=== PATIENT | female | born 1960 | race Caucasian/White ===

== ENCOUNTER 2017-02-03 10:20 | Day surgery (SDC) | payer BC, OTHER ==
[2017-02-02 09:16] VITALS: BMI 22.8
[~2017-02-03 10:20] MED LIST: LACTATED RINGERS 1,000 ML IV SCH
[2017-02-03 10:49] VITALS: RESP 16; TEMP 98.1
[2017-02-03] MEDS ORDERED: LIDOCAINE 1% 20 ML VIAL (10MG/ML) FOR IV START INTRADERMA ONE (10:59)
[2017-02-03] MEDS ORDERED: LIDOCAINE 1% INJ 10MG/ML (20 ML MDV) ONE (11:31)
[2017-02-03] MEDS ORDERED: PROPOFOL 10 MG/ML 20 ML VIAL IV ONE (11:31)
[2017-02-03] MEDS ORDERED: MIDAZOLAM 2 MG/2 ML VIAL ONE (11:31)
--- NOTE | 2017-02-03 11:52 | P.PCN ---
Date of Procedure: 02/03/17 Procedure(s) Performed: BRIEF HISTORY: Patient is a 56-year-old pleasant white female, scheduled for an elective colonoscopy as a part of screening for change in bowel habits and abdominal pain for the last 1 year duration. She has some right upper quadrant abdominal pain, abdominal bloating and change in stool caliber. Denies any rectal bleeding. PROCEDURE PERFORMED: Colonoscopy. PREOPERATIVE DIAGNOSIS: Abdominal pain and change in bowel habits. IV sedation per Anesthesia. PROCEDURE: After informed consent was obtained, the patient, was brought into the endoscopy unit. IV sedation was administered by Anesthesia under continuous monitoring. Digital rectal examination was normal. Initially the Olympus CF-160 flexible video colonoscope was then inserted in the rectum, gradually advanced into the cecum without any difficulty. Careful examination was performed as the scope was gradually being withdrawn. Ileocecal valve and the appendiceal orifice were visualized and appeared normal. Prep was excellent. Mucosa of the cecum, ascending colon, transverse colon, descending colon, sigmoid colon, and rectum appeared normal. Retroflexion was performed in the rectum and no lesions were seen. The patient tolerated the procedure well. IMPRESSION: Normal-appearing colon from rectum to cecum with no evidence of colorectal neoplasia. RECOMMENDATIONS: Findings of this examination were discussed with the patient as well as her family. She was advised to be a high-fiber diet, take fiber supplements and use [id number] laxatives as needed for the chronic constipation. She can have a repeat colonoscopy in 10 years.
[2017-02-03 12:46] VITALS: BP 114/68; PULSE 67
== END 2017-02-03 13:01 | disposition home or self-care (01) ==
LOC: ORWHC2ENDO 10:20
PROVIDERS: ATTEND Internal Medicine Gastroenterology
DX: R19.4 Change in bowel habit (principal); R10.9 Unspecified abdominal pain; R10.11 Right upper quadrant pain; K21.9 Gastro-esophageal reflux disease without esophagitis; I10 Essential (primary) hypertension; Z72.0 Tobacco use; Z79.899 Other long term (current) drug therapy
CPT/HCPCS: 45378; J2250; J2001; J2704

== ENCOUNTER → 2017-03-15 | Outpatient (CLI) | payer OTHER ==
[2017-03-15 18:34] LABS: Appearance,Urine Clear (Clear); Bilirubin,Urine Negative (Negative); Glucose,Urine (UA) Negative (Negative); Ketones,Urine Negative (Negative); Leukocyte Esterase,Urine Negative (Negative); Nitrite,Urine Negative (Negative); PH, Urine 5.5 (5.0-8.0); Protein,Urine Trace (Negative); Specific Gravity,Urine 1.025 (1.001-1.035); UA Billing (MACRO vs. MICRO) CHEM; Urobilinogen,Urine <2.0 mg/dL (<2.0)
== END | disposition home or self-care (01) ==
LOC: LABWHC1 17:32
PROVIDERS: ATTEND Obstetrics & Gynecology
DX: Z13.29 Encounter for screening for other suspected endocrine disorder (principal); R30.0 Dysuria
CPT/HCPCS: 36415; 81003; 84439; 84443; 87086

== ENCOUNTER → 2017-04-05 | Outpatient (CLI) | payer OTHER ==
--- NOTE | 2017-04-05 10:07 | US ---
EXAMINATION TYPE: US abdomen complete DATE OF EXAM: 04/05/2017 COMPARISON: US 2016 CLINICAL HISTORY: RUQ Pain R10.11, R14.0 Bloating. EXAM MEASUREMENTS: Liver Length: 14.1 cm Gallbladder Wall: 0.1 cm CBD: 0.5 cm Spleen: 8.8 cm Right Kidney: 11.7 x 4.9 x 4.1 cm Left Kidney: 11.7 x 6.3 x 5.9 cm Pancreas: wnl, partially obscured by bowel gas. Duct = 0.1 cm Liver: solid, left lobe mass. Some vascularity seen. size = 3.5 x 2.7 x 2.1 cm this is slightly hype rechoic in relation to the liver. Gallbladder: wnl Evidence for sonographic Trujillo's sign: no CBD: wnl Spleen: wnl Right Kidney: Cyst medially, as seen previously. Size = 1.5 x 1.5 x 1.3 cm Left Kidney: wnl Upper IVC: wnl Abd Aorta: wnl IMPRESSION: 1. Hepatic mass. Additional workup with contrast MRI is recommended. 2. Right renal cyst.
--- NOTE | 2017-04-05 10:48 | US ---
EXAMINATION TYPE: US transvaginal DATE OF EXAM: 04/05/2017 COMPARISON: US 2013 CLINICAL HISTORY: RUQ Pain R10.11, R14.0 Bloating. Hysterectomy and right ovary removed. Family hx ov [place] TECHNIQUE: Transvaginal (TV) Date of LMP: Hysterectomy EXAM MEASUREMENTS: Uterus: Surgically absent cm Endometrial Stripe: Surgically absent cm Right Ovary: Surgically absent cm Left Ovary: 2.7 x 1.6 x 1.2 cm Left Ovary: wnl, with follicle IMPRESSION: 1. Left ovarian follicle. 2. Post hysterectomy and right oophorectomy pelvic ultrasound.
== END | disposition home or self-care (01) ==
LOC: RADUSWWP 07:54
PROVIDERS: ATTEND Family Medicine
DX: N28.1 Cyst of kidney, acquired (principal); R16.0 Hepatomegaly, not elsewhere classified; R14.0 Abdominal distension (gaseous); Z90.710 Acquired absence of both cervix and uterus; Z90.721 Acquired absence of ovaries, unilateral
CPT/HCPCS: 76700; 76830

== ENCOUNTER 2017-04-24 23:29 | Emergency (ER) | payer BC, OTHER ==
--- NOTE | 2017-04-25 01:25 | ED ---
Extremity Problem HPI - General Chief complaint: Extremity Problem,Nontraumatic Stated complaint: L leg cramp/swelling Time Seen by Provider: 04/25/17 00:34 Source: patient, RN notes reviewed Mode of arrival: ambulatory Limitations: no limitations - History of Present Illness Initial comments: Patient is a 56-year-old female presents to the emergency room for evaluation of left leg pain and cramping. Patient states that overnight she woke up with a cramping/sharp pain sensation radiating from the posterior portion of her thigh into her calf. Patient states the cramping lasted for 10 minutes. Patient states she's afraid she has a blood clot and would like to be evaluated for it. Patient denies history of blood clots. Patient denies taking blood thinners. Patient denies any current pain. Patient denies chest pain or shortness of breath. Patient denies headache or dizziness. Patient denies any tingling in her toes. Patient denies any back pain. - Related Data Home Medications Medication Instructions Recorded Confirmed Dextroamphetamine/Amphetamine 20 mg PO BID 05/09/14 04/24/17 [Adderall] ALPRAZolam [Xanax] 0.25 mg PO DAILY PRN 02/02/17 04/24/17 Calcium Carbonate [Tums] 500 mg PO DAILY PRN 02/02/17 04/24/17 Estradiol [Estrace] 1 mg PO DAILY 02/02/17 04/24/17 Ibuprofen [Motrin] 800 mg PO DAILY PRN 02/02/17 04/24/17 Losartan Potassium [Cozaar] 12.5 mg PO DAILY 02/02/17 04/24/17 Allergies Allergy/AdvReac Type Severity Reaction Status Date / Time No Known Allergies Allergy Verified 02/02/17 08:39 Review of Systems ROS Statement: Those systems with pertinent positive or pertinent negative responses have been documented in the HPI. ROS Other: All systems not noted in ROS Statement are negative. Past Medical History Past Medical History: Cancer, GERD/Reflux, Hypertension Additional Past Medical History / Comment(s): HX OF CERVICAL CANCER, ARTHRITIS AND LOW BACK PAIN., STATES HAVING BLOATING AND CONSTIPATION. History of Any Multi-Drug Resistant Organisms: None Reported Past Surgical History: Section, Hysterectomy Additional Past Surgical History / Comment(s): "BONE TUMOR " REMOVED LEFT HIP Past Anesthesia/Blood Transfusion Reactions: No Reported Reaction, Motion Sickness Past Psychological History: ADD/ADHD, Anxiety Smoking Status: Former smoker Past Alcohol Use History: Daily Past Drug Use History: None Reported - Past Family History Sister(s) Family Medical History: No Reported History General Exam - General Exam Comments Initial Comments: Sitting in exam room, no acute distress. Limitations: no limitations General appearance: alert, in no apparent distress Head exam: Present: atraumatic, normocephalic, normal inspection Eye exam: Present: normal appearance ENT exam: Present: normal exam Neck exam: Present: normal inspection Respiratory exam: Present: normal lung sounds bilaterally. Absent: respiratory distress Cardiovascular Exam: Present: regular rate, normal rhythm, normal heart sounds Left Hip exam: Present: normal inspection. Absent: tenderness Upper Leg exam: Present: normal inspection. Absent: tenderness Knee exam: Present: normal inspection. Absent: tenderness Lower Leg exam: Present: normal inspection. Absent: tenderness Ankle exam: Present: normal inspection. Absent: tenderness Foot/Toe exam: Present: normal inspection. Absent: tenderness Neurovascular tendon exam: Present: no vascular compromise. Absent: pulse deficit (2+ dorsal pedal and posterior tibial pulses), abnormal cap refill ( Capillary refill less than 2 seconds) Course Vital Signs 04/24/17 04/25/17 04/25/17 23:39 02:47 03:42 Temperature 98.2 F 97.6 F Pulse Rate 83 72 62 Respiratory 18 16 16 Rate Blood Pressure 132/81 109/52 136/76 O2 Sat by Pulse 96 98 Oximetry Medical Decision Making - Medical Decision Making Patient is a 56-year-old female presents emergency room for evaluation of left leg cramping. Left leg ultrasound negative for acute DVT. Labs show no concerning findings. Electrolytes within normal limits. Advised patient to follow-up with primary care provider symptoms persist. Patient states she understands everything that was discussed with her. Return parameters discussed. - Lab Data Result diagrams: 04/25/17 01:45 04/25/17 01:45 Lab Results 04/25/17 04/25/17 Range/Units 01:45 01:45 WBC 7.7 (3.8-10.6) k/uL RBC 4.17 (3.80-5.40) m/uL Hgb 12.7 (11.4-16.0) gm/dL Hct 38.1 (34.0-46.0) % MCV 91.5 (80.0-100.0) fL MCH 30.5 (25.0-35.0) pg MCHC 33.3 (31.0-37.0) g/dL RDW 13.0 (11.5-15.5) % Plt Count 141 L (150-450) k/uL Neutrophils % 61 % Lymphocytes % 29 % Monocytes % 6 % Eosinophils % 2 % Basophils % 1 % Neutrophils # 4.7 (1.3-7.7) k/uL Lymphocytes # 2.2 (1.0-4.8) k/uL Monocytes # 0.4 (0-1.0) k/uL Eosinophils # 0.1 (0-0.7) k/uL Basophils # 0.1 (0-0.2) k/uL Sodium 140 (137-145) mmol/L Potassium 3.7 (3.5-5.1) mmol/L Chloride 101 (98-107) mmol/L Carbon Dioxide 28 (22-30) mmol/L Anion Gap 11 mmol/L BUN 29 H (7-17) mg/dL Creatinine 0.90 (0.52-1.04) mg/dL Est GFR (MDRD) Af Amer >60 (>60 ml/min/1.73 sqM) Est GFR (MDRD) Non-Af >60 (>60 ml/min/1.73 sqM) Glucose 107 H (74-99) mg/dL Calcium 9.4 (8.4-10.2) mg/dL Magnesium 1.9 (1.6-2.3) mg/dL Total Bilirubin 0.3 (0.2-1.3) mg/dL AST 29 (14-36) U/L ALT 39 (9-52) U/L Alkaline Phosphatase 61 (38-126) U/L Total Protein 6.5 (6.3-8.2) g/dL Albumin 4.2 (3.5-5.0) g/dL - Radiology Data Radiology results: report reviewed, image reviewed Disposition Clinical Impression: Left leg pain Disposition: HOME SELF-CARE Condition: Good Instructions: Leg Pain (ED) Additional Instructions: Please follow up with primary care provider in 1-2 days. If any new symptom arises or symptoms worsen, return to ER as soon as possible. Referrals: Randy Valdes MD [Primary Care Provider] - 1-2 days Time of Disposition: 03:33
[2017-04-25 02:03] LABS: Basophils # (A) 0.1 k/uL (0-0.2); Basophils % (A) 1 %; CH 30.5; CHCM 33.5; Eosinophils # (A) 0.1 k/uL (0-0.7); Eosinophils % (A) 2 %; HCT 38.1 % (34.0-46.0); HGB 12.7 gm/dL (11.4-16.0); Luc # (Auto) 0.12; Luc % (Auto) 2; Lymphocytes # (A) 2.2 k/uL (1.0-4.8); Lymphocytes % (A) 29 %; MCH 30.5 pg (25.0-35.0); MCHC 33.3 g/dL (31.0-37.0); MCV 91.5 fL (80.0-100.0); Mean Platelet Volume 8.9; Monocytes # (A) 0.4 k/uL (0-1.0); Monocytes % (A) 6 %; Neutrophils # (A) 4.7 k/uL (1.3-7.7); Neutrophils % (A) 61 %; RBC 4.17 m/uL (3.80-5.40); WBC 7.7 k/uL (3.8-10.6); WBC (Perox) 8.19
[2017-04-25 02:19] LABS: Anion Gap 11 mmol/L; Blood Urea Nitrogen 29 mg/dL (7-17); Carbon Dioxide 28 mmol/L (22-30); Chloride 101 mmol/L (98-107); Glucose 107 mg/dL (74-99); Potassium 3.7 mmol/L (3.5-5.1); Sodium 140 mmol/L (137-145)
[2017-04-25 02:20] LABS: ALT 39 U/L (9-52); AST 29 U/L (14-36); Alkaline Phosphatase 61 U/L (38-126); Calcium 9.4 mg/dL (8.4-10.2); Magnesium 1.9 mg/dL (1.6-2.3); Non-African American GFR(MDRD) >60 (>60 ml/min/1.73 sqM); Total Bilirubin 0.3 mg/dL (0.2-1.3); Total Protein 6.5 g/dL (6.3-8.2)
[2017-04-25 02:59] VITALS: RESP 16
[2017-04-25 03:43] VITALS: BP 136/76; PULSE 62; TEMP 97.6
--- NOTE | 2017-04-25 03:47 | US ---
EXAM: US Duplex Left Lower Extremity Veins CLINICAL HISTORY: Pain. TECHNIQUE: Real-time ultrasound scan of the veins of the left lower extremity with color Doppler flow, spectral waveform analysis and compression. COMPARISON: No relevant prior studies available. FINDINGS: Deep veins: No deep venous thrombosis in the common femoral, femoral, proximal deep femoral or popliteal veins. The veins are compressible with normal color flow and augmentation. Superficial veins: No thrombus in the visualized greater saphenous vein. IMPRESSION: No evidence of deep venous thrombosis.
== END 2017-04-25 03:43 | disposition home or self-care (01) ==
LOC: EC 23:29
DX: M79.605 Pain in left leg (principal); I10 Essential (primary) hypertension; F41.9 Anxiety disorder, unspecified; F90.9 Attention-deficit hyperactivity disorder, unspecified type; Z79.899 Other long term (current) drug therapy; Z87.891 Personal history of nicotine dependence
CPT/HCPCS: 36415; 80053; 83735; 85025; 99284

== ENCOUNTER → 2017-04-27 | Outpatient (CLI) | payer BC, OTHER ==
--- NOTE | 2017-04-28 09:04 | MR ---
EXAMINATION TYPE: MR liver wo/w con DATE OF EXAM: 04/27/2017 COMPARISON: Abdominal ultrasound April 05, 2017. HISTORY: RUQ Pain per US report, Abnormal US in pacs CONTRAST: Standard multiplanar, multisequence MRI departmental protocol utilizing 15 mL intravenous MultiHance gadolinium contrast. Exam is performed of the abdomen focusing on the liver FINDINGS: Exam is noted markedly suboptimal as there is significant motion degradation. LIVER/GB: Liver is overall normal to slightly small in size. Corresponding to ultrasound abnormality central in the left hepatic lobe inferiorly near superior aspect of raeann hepatis there is approximat christiano 2.7 x 2.5 x 1.8 cm lobulated lesion of T1 hypointensity and T2 hyperintensity, dynamic images are significantly degraded by artifact but show suggestion of some peripheral heterogeneous enhancement progressive centripetal filling. Almost certainly imaging characteristics are suggestive of hemangiom a especially given hyperechoic appearance on ultrasound. No additional solid or cystic masses are jeffrey brigida seen. No biliary dilatation is clearly identified. Visualized portion of gallbladder is unremark able OTHER: Lung bases are grossly clear. There is no pleural or pericardial effusion seen. Visualized por tion of liver, pancreas, and both adrenal glands are normal in size and grossly unremarkable. There i s simple appearing 1.2 cm cyst centrally mid to lower pole level right kidney redemonstrated. Visuali zed osseous structures are intact. No suspicious bowel dilatation is seen. No concerning abdominal fl uid collection is noted. IMPRESSION: Suboptimal study with significant motion artifact, lesion of ultrasound concern however almost certai nly reflects benign hemangioma.
== END | disposition home or self-care (01) ==
LOC: RADMRIMAIN 10:23
PROVIDERS: ATTEND Family Medicine
DX: R16.0 Hepatomegaly, not elsewhere classified (principal)
CPT/HCPCS: 74183; A9577

== ENCOUNTER 2017-08-09 07:42 | Inpatient (IN) | payer BC, OTHER ==
[2017-08-09] MEDS ORDERED: SODIUM CHLORIDE 0.9% 1,000 ML IV STA ×2 (08:23→10:07)
[2017-08-09] MEDS ORDERED: HYDROmorphone 1 MG/ML 1 ML SYRINGE IVP STA ×2 (08:25→10:07)
[2017-08-09] MEDS ORDERED: ONDANSETRON 4 MG/2 ML VIAL IVP STA (08:25)
[2017-08-09 08:37] LABS: Basophils # (A) 0.1 k/uL (0-0.2); Basophils % (A) 0 %; CH 30.2; Eosinophils # (A) 0.2 k/uL (0-0.7); Eosinophils % (A) 1 %; HCT 38.2 % (34.0-46.0); HDW 2.36; HGB 12.8 gm/dL (11.4-16.0); Luc % (Auto) 1; Lymphocytes % (A) 10 %; MCH 30.8 pg (25.0-35.0); MCHC 33.5 g/dL (31.0-37.0); Mean Platelet Volume 8.7; Monocytes # (A) 0.6 k/uL (0-1.0); Monocytes % (A) 3 %; Neutrophils # (A) 16.9 k/uL (1.3-7.7); Neutrophils % (A) 85 %; RBC 4.16 m/uL (3.80-5.40); RDW 12.4 % (11.5-15.5); WBC 19.8 k/uL (3.8-10.6); WBC (Perox) 20.17
--- NOTE | 2017-08-09 08:47 | ED ---
General Adult HPI - General Chief complaint: Abdominal Pain Stated complaint: Fever and side pain Time Seen by Provider: 08/09/17 08:10 Source: patient, RN notes reviewed Mode of arrival: wheelchair Limitations: no limitations - History of Present Illness Initial comments: Patient is a 57-year-old female who presents emergency room today with a chief complaint of right-sided abdominal pain that started yesterday. She describes it as a sharp pain located in the right side. Patient does not that it's worse with certain movements. She currently rates an 8/10. She states she's been trying ibuprofen with little relief the symptoms. Patient does admit to some increased urinary frequency. She denies any other complaints or associated symptoms. Patient denies any recent fever, chills, shortness of breath, chest pain, back pain, vomiting, numbness or tingling, dysuria or hematuria, constipation or diarrhea, headaches or visual changes, or any other complaints. - Related Data Home Medications Medication Instructions Recorded Confirmed Dextroamphetamine/Amphetamine 20 mg PO BID 05/09/14 08/09/17 [Adderall] Estradiol [Estrace] 1 mg PO DAILY 02/02/17 08/09/17 Ibuprofen [Motrin] 800 mg PO DAILY PRN 02/02/17 08/09/17 Losartan-Hctz 50-12.5 mg [Hyzaar 1 tab PO DAILY 08/09/17 08/09/17 50-12.5] Multivitamins, Thera [Multivitamin 1 tab PO DAILY 08/09/17 08/09/17 (formulary)] Allergies Allergy/AdvReac Type Severity Reaction Status Date / Time No Known Allergies Allergy Verified 08/09/17 08:07 Review of Systems ROS Statement: Those systems with pertinent positive or pertinent negative responses have been documented in the HPI. ROS Other: All systems not noted in ROS Statement are negative. Past Medical History Past Medical History: Cancer, GERD/Reflux, Hypertension Additional Past Medical History / Comment(s): HX OF CERVICAL CANCER, ARTHRITIS AND LOW BACK PAIN History of Any Multi-Drug Resistant Organisms: None Reported Past Surgical History: Section, Hysterectomy Additional Past Surgical History / Comment(s): "BONE TUMOR " REMOVED LEFT HIP Past Anesthesia/Blood Transfusion Reactions: No Reported Reaction, Motion Sickness Past Psychological History: ADD/ADHD, Anxiety Smoking Status: Former smoker Past Alcohol Use History: Occasional Past Drug Use History: None Reported - Past Family History Sister(s) Family Medical History: No Reported History General Exam - General Exam Comments Initial Comments: General: The patient is awake and alert, in no distress, and does not appear acutely ill. Eye: Pupils are equal, round and reactive to light, extra-ocular movements are intact. No nystagmus. There is normal conjunctiva bilaterally. No signs of icterus. Ears, nose, mouth and throat: There are moist mucous membranes and no oral lesions. Neck: The neck is supple, there is no tenderness or JVD. Cardiovascular: There is a regular rate and rhythm. No murmur, rub or gallop is appreciated. Respiratory: Lungs are clear to auscultation, respirations are non-labored, breath sounds are equal. No wheezes, stridor, rales, or rhonchi. Gastrointestinal: Normal appearance abdomen. Normal bowel sounds. Abdomen soft on palpation. Patient does have tenderness in the right quadrant. No rebound tenderness. No guarding. Musculoskeletal: Normal ROM, no tenderness. Strength 5/5. Sensation intact. Pulses equal bilaterally 2+. Neurological: A&O x 3. CN II-XII intact, There are no obvious motor or sensory deficits. Coordination appears grossly intact. Speech is normal. Skin: Skin is warm and dry and no rashes or lesions are noted. Psychiatric: Cooperative, appropriate mood & affect, normal judgment. Limitations: no limitations Course Vital Signs 08/09/17 08/09/17 07:48 09:09 Temperature 98.2 F 97 F L Pulse Rate 71 70 Respiratory 18 18 Rate Blood Pressure 123/65 117/67 O2 Sat by Pulse 98 97 Oximetry - Reevaluation(s) Reevaluation #1: 08/09/17 10:08 Patient reexamined at this time shows no sign of distress. States still expresses some pain right lower quadrant. Labs were reviewed 19,[address] Patient's CT is consistent with signs of acute appendicitis. Results were discussed with the patient. Case discussed with attending physician Dr. Sepulveda at this time. Patient family doctor's Dr. Valdes. Has preference for [facility]. Surgeon has been paged at this time. Medical Decision Making - Medical Decision Making 1012: Attending physician did discuss case with on-call surgeon Dr. Kevin Higgins the patient. Patient will remain nothing by mouth. - Lab Data Result diagrams: 08/09/17 08:10 08/09/17 08:10 Lab Results 08/09/17 08/09/17 08/09/17 Range/Units 08:10 08:10 08:10 WBC 19.8 H (3.8-10.6) k/uL RBC 4.16 (3.80-5.40) m/uL Hgb 12.8 (11.4-16.0) gm/dL Hct 38.2 (34.0-46.0) % MCV 92.0 (80.0-100.0) fL MCH 30.8 (25.0-35.0) pg MCHC 33.5 (31.0-37.0) g/dL RDW 12.4 (11.5-15.5) % Plt Count 148 L (150-450) k/uL Neutrophils % 85 % Lymphocytes % 10 % Monocytes % 3 % Eosinophils % 1 % Basophils % 0 % Neutrophils # 16.9 H (1.3-7.7) k/uL Lymphocytes # 2.0 (1.0-4.8) k/uL Monocytes # 0.6 (0-1.0) k/uL Eosinophils # 0.2 (0-0.7) k/uL Basophils # 0.1 (0-0.2) k/uL Sodium 138 (137-145) mmol/L Potassium 3.9 (3.5-5.1) mmol/L Chloride 103 (98-107) mmol/L Carbon Dioxide 24 (22-30) mmol/L Anion Gap 11 mmol/L BUN 13 (7-17) mg/dL Creatinine 0.73 (0.52-1.04) mg/dL Est GFR (MDRD) Af Amer >60 (>60 ml/min/1.73 sqM) Est GFR (MDRD) Non-Af >60 (>60 ml/min/1.73 sqM) Glucose 102 H (74-99) mg/dL Plasma Lactic Acid Teddy (0.7-2.0) mmol/L Calcium 9.5 (8.4-10.2) mg/dL Total Bilirubin 0.9 (0.2-1.3) mg/dL AST 20 (14-36) U/L ALT 26 (9-52) U/L Alkaline Phosphatase 71 (38-126) U/L Total Protein 6.9 (6.3-8.2) g/dL Albumin 4.1 (3.5-5.0) g/dL Amylase 38 (30-110) U/L Lipase 51 (23-300) U/L Urine Color Yellow Urine Appearance Cloudy H (Clear) Urine pH 7.0 (5.0-8.0) Ur Specific Homer 1.016 (1.001-1.035) Urine Protein Trace H (Negative) Urine Glucose (UA) Negative (Negative) Urine Ketones Negative (Negative) Urine Blood Trace H (Negative) Urine Nitrite Negative (Negative) Urine Bilirubin Negative (Negative) Urine Urobilinogen <2.0 (<2.0) mg/dL Ur Leukocyte Esterase Negative (Negative) Urine RBC 5 (0-5) /hpf Urine WBC 8 H (0-5) /hpf Ur Squamous Epith Cells 9 H (0-4) /hpf Urine Bacteria Occasional H (None) /hpf Hyaline Casts 8 H (0-2) /lpf Urine Mucus Rare H (None) /hpf 08/09/17 Range/Units 08:10 WBC (3.8-10.6) k/uL RBC (3.80-5.40) m/uL Hgb (11.4-16.0) gm/dL Hct (34.0-46.0) % MCV (80.0-100.0) fL MCH (25.0-35.0) pg MCHC (31.0-37.0) g/dL RDW (11.5-15.5) % Plt Count (150-450) k/uL Neutrophils % % Lymphocytes % % Monocytes % % Eosinophils % % Basophils % % Neutrophils # (1.3-7.7) k/uL Lymphocytes # (1.0-4.8) k/uL Monocytes # (0-1.0) k/uL Eosinophils # (0-0.7) k/uL Basophils # (0-0.2) k/uL Sodium (137-145) mmol/L Potassium (3.5-5.1) mmol/L Chloride (98-107) mmol/L Carbon Dioxide (22-30) mmol/L Anion Gap mmol/L BUN (7-17) mg/dL Creatinine (0.52-1.04) mg/dL Est GFR (MDRD) Af Amer (>60 ml/min/1.73 sqM) Est GFR (MDRD) Non-Af (>60 ml/min/1.73 sqM) Glucose (74-99) mg/dL Plasma Lactic Acid Teddy 1.0 (0.7-2.0) mmol/L Calcium (8.4-10.2) mg/dL Total Bilirubin (0.2-1.3) mg/dL AST (14-36) U/L ALT (9-52) U/L Alkaline Phosphatase (38-126) U/L Total Protein (6.3-8.2) g/dL Albumin (3.5-5.0) g/dL Amylase (30-110) U/L Lipase (23-300) U/L Urine Color Urine Appearance (Clear) Urine pH (5.0-8.0) Ur Specific Homer (1.001-1.035) Urine Protein (Negative) Urine Glucose (UA) (Negative) Urine Ketones (Negative) Urine Blood (Negative) Urine Nitrite (Negative) Urine Bilirubin (Negative) Urine Urobilinogen (<2.0) mg/dL Ur Leukocyte Esterase (Negative) Urine RBC (0-5) /hpf Urine WBC (0-5) /hpf Ur Squamous Epith Cells (0-4) /hpf Urine Bacteria (None) /hpf Hyaline Casts (0-2) /lpf Urine Mucus (None) /hpf Disposition Clinical Impression: Acute appendicitis Disposition: ADMITTED IP TO THIS [facility] Condition: Good Referrals: Randy Valdes MD [Primary Care Provider] - 1-2 days Time of Disposition: 10:12
[2017-08-09 08:51] LABS: Appearance,Urine Cloudy (Clear); Bacteria,Urine Occasional /hpf; Bilirubin,Urine Negative (Negative); Glucose,Urine (UA) Negative (Negative); Ketones,Urine Negative (Negative); Leukocyte Esterase,Urine Negative (Negative); Mucus,Urine Rare /hpf; Nitrite,Urine Negative (Negative); Particle Count 6452; Protein,Urine Trace (Negative); RBC,Urine 5 /hpf (0-5); Specific Gravity,Urine 1.016 (1.001-1.035); Squamous Epithelial Cell,Urine 9 /hpf (0-4); UA Billing (MACRO vs. MICRO) MICRO; Urobilinogen,Urine <2.0 mg/dL (<2.0); WBC,Urine 8 /hpf (0-5)
[2017-08-09] MEDS ORDERED: RX INFO: IV CONTRAST WAS GIVEN 1 EACH MISC MISCELLANE PRN (09:02)
[2017-08-09 09:04] LABS: ALT 26 U/L (9-52); AST 20 U/L (14-36); Alkaline Phosphatase 71 U/L (38-126); Amylase 38 U/L (30-110); Anion Gap 11 mmol/L; Blood Urea Nitrogen 13 mg/dL (7-17); Calcium 9.5 mg/dL (8.4-10.2); Carbon Dioxide 24 mmol/L (22-30); Chloride 103 mmol/L (98-107); Glucose 102 mg/dL (74-99); Non-African American GFR(MDRD) >60 (>60 ml/min/1.73 sqM); Potassium 3.9 mmol/L (3.5-5.1); Sodium 138 mmol/L (137-145); Total Bilirubin 0.9 mg/dL (0.2-1.3); Total Protein 6.9 g/dL (6.3-8.2)
--- NOTE | 2017-08-09 09:04 | XR ---
EXAMINATION TYPE: XR KUB DATE OF EXAM: 08/09/2017 8:51 AM CLINICAL HISTORY: Right lower quadrant pain with nausea and vomiting TECHNIQUE: Two Upright KUB images of the abdomen are obtained. COMPARISON: None. FINDINGS: Scattered gas is seen in non-distended small bowel loops. Gas and fecal material is seen in non-distended colon. There is no visceromegaly, pneumoperitoneum, or abnormal calcification apprecia terry. The lung bases are clear and the osseous structures are intact. IMPRESSION: Overall nonobstructive bowel gas pattern.
--- NOTE | 2017-08-09 10:05 | CT ---
EXAMINATION TYPE: CT abdomen pelvis w con DATE OF EXAM: 08/09/2017 HISTORY: Right lower quadrant pain CT DLP: 476.4mGycm Automated Exposure Control for Dose Reduction was Utilized. CONTRAST: CT scan of the abdomen and pelvis is performed without oral but with IV Contrast, patient injected wi th 100 mL of Omnipaque 300. COMPARISON: None. FINDINGS: LUNG BASES: Can atelectasis is seen in both lung bases.. LIVER/GB: No significant abnormality is appreciated. PANCREAS: No significant abnormality is seen. SPLEEN: No significant abnormality is seen. ADRENALS: No significant abnormality is seen. KIDNEYS: No significant abnormality is seen. BOWEL: Appendix is mildly dilated at 7 to 8 mm ascending from the cecum seen on axial images 39 throu gh 50 and coronal images 28 through 34. There is moderate ill-defined fluid and fat stranding at this level noted. No well-formed fluid collection or abscess is seen. Terminal ileum is felt within naty l limits. There is no suspicious small or large bowel dilatation. UTERUS/ADNEXA: No gross abnormality seen. LYMPH NODES: No greater than 1cm abdominal or pelvic lymph nodes are appreciated. OSSEOUS STRUCTURES: There is moderate disc space narrowing at L4-L5 level. There is facet arthropathy in the lower lumbar spine. OTHER: No significant additional abnormality is seen. IMPRESSION: CT findings are consistent with acute appendicitis as suspected clinically. Results communicated to ordering emergency care physician education assistant via telephone at time of dictatio n.
[2017-08-09] MEDS ORDERED: ONDANSETRON 4 MG/2 ML VIAL IVP PRN ×2 (10:13→15:19)
[2017-08-09] MEDS ORDERED: NALOXONE 0.4 MG/ML 1 ML VIAL IV PRN ×2 (10:13→15:19)
[2017-08-09] MEDS: PIPERACILLIN-TAZOBACTAM 3.375 GM in DEXTROSE/WATER 1 50ML.BAG IVPB SCH ×2 (11:43→18:40)
[2017-08-09] MEDS: PANTOPRAZOLE 40 MG/10 ML VIAL IVP SCH ×2 (11:44→20:52)
--- NOTE | 2017-08-09 12:07 | P.GSHP ---
History of Present Illness H&P Date: 08/09/17 Chief Complaint: Abdominal pain 57-year-old female presented to the emergency room with a chief complaint of developing right-sided abdominal pain started the day before. Patient described the pain as sharp radiating to the right upper and lower side of the abdomen. Patient stated it seemed to be aggravated with any movement caused increased pain. Patient stated it was since sensation of nausea no active emesis. Patient denied any fever chills shortness breath chest pain nausea vomiting dizziness or lightheadedness. Patient denied any prior episodes. Patient was seen in the emergency room the white count was 19,000. Patient had a CAT scan of the abdomen and pelvis it was consistent with signs of acute appendicitis. Patient states she's been in her usual state of health up until the current event. Patient does give a history of having a change in bowel habits with abdominal pain over the last year but felt like it was chronic felt that this pain was quite different. Patient stated that the pain that she was experiencing about a year ago was in the right upper quadrant felt there was abdominal bloating. No rectal bleeding. Patient did have a colonoscopy on February [address] San for change in bowel habits is an unremarkable study. Patient does have a history of an attention deficit and hypertension, anxiety disorder Additionally patient was worked up in March when he th right upper quadrant pain for an ultrasound at that time patient had an MRI of the liver reviewing the report it showed no suspicious bowel dilatation. Simple appearing 1.2 cm cyst central and mid to lower pole level right kidney redemonstrated visual portions of the liver pancreas and both adrenal glands were normal in size and grossly unremarkable - Review of Systems Comment: Essentially unremarkable except as mentioned in the present illness Past Medical History Past Medical History: Cancer, GERD/Reflux, Hypertension Additional Past Medical History / Comment(s): HX OF CERVICAL CANCER, ARTHRITIS AND LOW BACK PAIN History of Any Multi-Drug Resistant Organisms: None Reported Past Surgical History: Section, Hysterectomy Additional Past Surgical History / Comment(s): "BONE TUMOR " REMOVED LEFT HIP Past Anesthesia/Blood Transfusion Reactions: No Reported Reaction, Motion Sickness Past Psychological History: ADD/ADHD, Anxiety Smoking Status: Former smoker Past Alcohol Use History: Occasional Past Drug Use History: None Reported - Past Family History Sister(s) Family Medical History: No Reported History Medications and Allergies Home Medications Medication Instructions Recorded Confirmed Type Dextroamphetamine/Amphetamine 20 mg PO BID 05/09/14 08/09/17 History [Adderall] Estradiol [Estrace] 1 mg PO DAILY 02/02/17 08/09/17 History Ibuprofen [Motrin] 800 mg PO DAILY PRN 02/02/17 08/09/17 History Losartan-Hctz 50-12.5 mg [Hyzaar 1 tab PO DAILY 08/09/17 08/09/17 History 50-12.5] Multivitamins, Thera [Multivitamin 1 tab PO DAILY 08/09/17 08/09/17 History (formulary)] Allergies Allergy/AdvReac Type Severity Reaction Status Date / Time No Known Allergies Allergy Verified 08/09/17 08:07 Surgical - Exam Vital Signs Temp Pulse Resp BP Pulse Ox 98.2 F 71 18 123/65 98 08/09/17 07:48 08/09/17 07:48 08/09/17 07:48 08/09/17 07:48 08/09/17 07:48 GENERAL APPEARANCE: 57-year-old female patient is alert, oriented 3 states the pain medication makes her feel groggy but does not relieve the pain in the right lower quadrant patient feels anxious VITAL SIGNS: Reviewed HEENT: Head is normocephalic and atraumatic. Pupils are equal and reactive. The nares are patent. Oropharynx is clear without lesions. NECK: Supple without lymphadenopathy. Traches midline. HEART: S1, S2. Regular rate and rhythm. No murmur noted denying chest pain LUNGS: No crackles or wheezes are heard. Adequate air movement bilaterally ABDOMEN: Soft, tenderness to the right upper and lower quadrant with movement increased pain nondistended with good bowel sounds. No peritoneal signs. No palpable organomegaly or masses. Reports a nausea sensation no active emesis EXTREMITIES: Normal skin color and turgor. No cyanosis, rash, ulceration, clubbing or edema. Radial pedal pulses are 2/4 bilaterally. NEUROLOGICAL: No focal deficits. Strength and sensation are grossly intact. Results - Labs 08/09/17 08:10 08/09/17 08:10 Abnormal Lab Results - Last 24 Hours (Table) 08/09/17 08/09/17 08/09/17 Range/Units 08:10 08:10 08:10 WBC 19.8 H (3.8-10.6) k/uL Plt Count 148 L (150-450) k/uL Neutrophils # 16.9 H (1.3-7.7) k/uL Glucose 102 H (74-99) mg/dL Urine Appearance Cloudy H (Clear) Urine Protein Trace H (Negative) Urine Blood Trace H (Negative) Urine WBC 8 H (0-5) /hpf Ur Squamous Epith Cells 9 H (0-4) /hpf Urine Bacteria Occasional H (None) /hpf Hyaline Casts 8 H (0-2) /lpf Urine Mucus Rare H (None) /hpf Diabetes panel 08/09/17 Range/Units 08:10 Sodium 138 (137-145) mmol/L Potassium 3.9 (3.5-5.1) mmol/L Chloride 103 (98-107) mmol/L Carbon Dioxide 24 (22-30) mmol/L BUN 13 (7-17) mg/dL Creatinine 0.73 (0.52-1.04) mg/dL Glucose 102 H (74-99) mg/dL Calcium 9.5 (8.4-10.2) mg/dL AST 20 (14-36) U/L ALT 26 (9-52) U/L Alkaline Phosphatase 71 (38-126) U/L Total Protein 6.9 (6.3-8.2) g/dL Albumin 4.1 (3.5-5.0) g/dL Calcium panel 08/09/17 Range/Units 08:10 Calcium 9.5 (8.4-10.2) mg/dL Albumin 4.1 (3.5-5.0) g/dL Pituitary panel 08/09/17 Range/Units 08:10 Sodium 138 (137-145) mmol/L Potassium 3.9 (3.5-5.1) mmol/L Chloride 103 (98-107) mmol/L Carbon Dioxide 24 (22-30) mmol/L BUN 13 (7-17) mg/dL Creatinine 0.73 (0.52-1.04) mg/dL Glucose 102 H (74-99) mg/dL Calcium 9.5 (8.4-10.2) mg/dL Adrenal panel 08/09/17 Range/Units 08:10 Sodium 138 (137-145) mmol/L Potassium 3.9 (3.5-5.1) mmol/L Chloride 103 (98-107) mmol/L Carbon Dioxide 24 (22-30) mmol/L BUN 13 (7-17) mg/dL Creatinine 0.73 (0.52-1.04) mg/dL Glucose 102 H (74-99) mg/dL Calcium 9.5 (8.4-10.2) mg/dL Total Bilirubin 0.9 (0.2-1.3) mg/dL AST 20 (14-36) U/L ALT 26 (9-52) U/L Alkaline Phosphatase 71 (38-126) U/L Total Protein 6.9 (6.3-8.2) g/dL Albumin 4.1 (3.5-5.0) g/dL Assessment and Plan Plan: Impression Present on admission right upper quadrant pain CAT scan abdomen and pelvis suspected acute appendicitis Present on admission leukocytosis suspect due to acute appendicitis white count 19,000 Colonoscopy 02/03/[address] San no acute findings no evidence of colorectal neoplasia History of attention deficit Anxiety disorder nonspecified Plan Keep nothing by mouth anticipate lap possible open appendectomy Pain control IV Zosyn as ordered IV hydration Further recommendations pending Plan of care discussed with the patient receptive to the plan verbalized understanding The above impression and plan of care have been discussed and directed by signing physician. Kerri Winter nurse practitioner acting as scribe for signing physician.
[2017-08-09] MEDS: HYDROmorphone 1 MG/ML 1 ML SYRINGE IV PRN ×3 (12:12→23:20)
[2017-08-09] MEDS ORDERED: IV FLUID CONTINUATION 1,000 ML IV ONE (13:01)
[2017-08-09] MEDS ORDERED: SCOPOLAMINE 1.5MG/72HR PATCH TRANSDERM ONE (13:06)
[2017-08-09] MEDS ORDERED: DEXAMETHASONE SOD PHOSPHATE 10 MG/ML 1 ML VIAL IV ONE (13:06)
[2017-08-09] MEDS ORDERED: ONDANSETRON 4 MG/2 ML VIAL IVP ONE (13:08)
[2017-08-09] MEDS ORDERED: PROPOFOL 10 MG/ML 20 ML VIAL IV ONE ×2 (13:14)
[2017-08-09] MEDS ORDERED: NEOSTIGMINE 1 MG/ML 10 ML VIAL ONE (13:14)
[2017-08-09] MEDS ORDERED: MIDAZOLAM 2 MG/2 ML VIAL ONE (13:14)
[2017-08-09] MEDS ORDERED: fentaNYL (PF) 50 MCG/ML 2 ML AMP ONE (13:14)
[2017-08-09] MEDS ORDERED: ROCURONIUM BROMIDE 10 MG/ML 10 ML VIAL IV ONE (13:14)
[2017-08-09] MEDS ORDERED: LIDOCAINE 1% INJ 10MG/ML (20 ML MDV) ONE (13:14)
[2017-08-09] MEDS ORDERED: GLYCOPYRROLATE 0.2 MG/ML 2 ML VIAL ONE (13:14)
[2017-08-09] MEDS ORDERED: HEPARIN SODIUM,PORCINE 5,000 UNIT/ML 1 ML VIAL SQ ONE (13:20)
[2017-08-09] MEDS ORDERED: LIDOCAINE 1% (PF) 10 MG/ML (30 ML SDV) SQ ONE ×4 (13:45)
[2017-08-09] MEDS ORDERED: LACTATED RINGERS 1,000 ML IV ONE (15:01)
[2017-08-09] MEDS ORDERED: HYDROmorphone 1 MG/ML 1 ML SYRINGE IV PRN (15:19)
--- NOTE | 2017-08-09 15:19 | P.OP ---
Date of Procedure: 08/09/17 Preoperative Diagnosis: Acute appendicitis Postoperative Diagnosis: Extensive adhesions, acute appendicitis Procedure(s) Performed: Laparoscopic takedown of adhesions, laparoscopic appendectomy Anesthesia: ROCKA Surgeon: Yashira Campuzano Estimated Blood Loss (ml): 20 IV fluids (ml): 750 Urine output (ml): 100 Pathology: other (Appendix) Condition: stable Disposition: PACU Indications for Procedure: Abdominal pain, CAT scan consistent with acute appendicitis, leukocytosis Operative Findings: Extensive midline adhesions, retroperitoneal acutely inflamed appendix Description of Procedure: The patient was taken to the operating room and following induction of general anesthesia the abdomen was prepped and draped in a sterile fashion. Infraumbilical incision was made and carried down to the fascia the intra- abdominal wall. This was elevated and the peritoneal cavity was entered. 2 stay sutures were placed. A balloon trocar was placed under direct visualization. The balloon was inflated and the area of the trocar a #5 camera was inserted. The patient was noted to have extensive adhesions which extended from just below the umbilicus to the area of the pubis. These were in the midline. Some of these were filmy and others were more dense. A #12 port was placed under direct visualization in the left lower quadrant area. In additional port a #5 port was placed in the right upper quadrant area. The camera was moved to the #5 port in the right upper quadrant. #12 and port in the left lower quadrant and the infraumbilical port the adhesions were carefully dissected free. This was done using blunt dissection with Kitner further filmy adhesions. Some of the denser adhesions were taken down using the Harmonic scalpel. This was approximately 45 minutes of taking down of fairly dense adhesions. After this had been accomplished the area of the cecum was identified. The cecum was elevated and reflected the colon extending cephalad the appendix was noted. It was very inflamed and adherent to the surrounding tissues. This was carefully dissected free using blunt dissection. The tip of the appendix was near the area of the kidney. The appendix was then grasped using a Jovon. The mesoappendix was divided using the Harmonic scalpel. This was dissected down to the base of the appendix at the cecum. The appendix was then removed using the stapling device. The appendix was placed in a Pleatman sac and brought up through the #12 port site. Irrigation of the area revealed no evidence of any bleeding. All of the appendix was inflamed it was not perforated. Therefore was determined that a drain was not necessary. The abdomen was well irrigated. No evidence of any active bleeding was identified. The adhesions had been taken down. The trochars in the left lower quadrant was removed under direct visualization. A Bruce Vance was placed in the fifth fascial defect was closed using 0 Vicryl suture. The #5 port was then removed. The infraumbilical port was removed and the fascia was closed using 0 Vicryl suture. Skin incisions were closed using 4-0 Monocryl. Cultures were obtained of the appendix. All instrument and sponge counts were correct at the end of the case. The patient tolerated the procedure in stable condition.
[2017-08-09] MEDS ORDERED: PIPERACILLIN-TAZOBACTAM 3.375 GM in DEXTROSE/WATER 1 50ML.BAG IVPB SCH (16:00)
[2017-08-09] MEDS: HYDROcodone/APAP 5-325MG 1 EACH TAB PO PRN ×2 (18:09→22:13)
[2017-08-09] MEDS: SODIUM CHLORIDE 0.45% 1,000 ML IV SCH (18:39)
[2017-08-09] MEDS: HEPARIN SODIUM,PORCINE 5,000 UNIT/ML 1 ML VIAL SQ SCH (20:52)
[2017-08-09] MEDS: FAMOTIDINE 20 MG TAB PO SCH (20:53)
[2017-08-09] MEDS ORDERED: NON-FORMULARY DRUG (Dextroamphetamine/Amphetamine [Adderall] 20 MG) PO SCH (21:00)
[2017-08-09 21:16] VITALS: BMI 22.5
[2017-08-10] MEDS: PIPERACILLIN-TAZOBACTAM 3.375 GM in DEXTROSE/WATER 1 50ML.BAG IVPB SCH ×4 (00:21→23:52)
[2017-08-10] MEDS: HYDROcodone/APAP 5-325MG 1 EACH TAB PO PRN ×5 (03:00→20:46)
[2017-08-10] MEDS: HYDROmorphone 1 MG/ML 1 ML SYRINGE IV PRN ×2 (04:34→08:11)
[2017-08-10] MEDS: SODIUM CHLORIDE 0.45% 1,000 ML IV SCH ×3 (04:37→23:50)
--- NOTE | 2017-08-10 06:10 | CONS ---
CONSULTATION DATE OF CONSULTATION: 08/09/2017 REASON FOR CONSULTATION: Medical management requested by Dr. Angelica Campuzano. CONSULTATION: This is a pleasant 57-year-old patient of Dr. Valdes. Chronic stable medical conditions include hypertension, anxiety, ADHD. Yesterday patient was having fever, chills, abdominal pain, getting worse. Decided to come to the ER. Normally has a regular bowel movement. No urinary symptoms. The patient was taken to the OR, underwent a acute appendectomy and lysis of adhesions. Patient has pain at the operative site. Lying in bed. REVIEW OF SYSTEMS: CONSTITUTIONAL: Had fever. HEENT: None. RESPIRATORY: Some shortness of breath, minimal. CARDIOVASCULAR: None. GASTROINTESTINAL: As above. GENITOURINARY: None. MUSCULOSKELETAL: None. DERMATOLOGICAL: None. HEMATOLOGICAL: None. LYMPHATIC: None. PSYCHIATRY: Anxiety, controlled. NEUROLOGICAL: None. PSYCHIATRY: Patient also went through some stress last year. PAST MEDICAL HISTORY: Past medical history of GERD, hypertension, cervical cancer, low back pain. PAST SURGICAL HISTORY: , hysterectomy, bone tumor removed from the left hip. PSYCH HISTORY: ADHD, anxiety. SOCIAL HISTORY: The patient smokes about half a pack a day. Has got 2 children, daughters, at home. Works at [employer]. FAMILY HISTORY: Reviewed, noncontributory to presentation. HOME MEDICATIONS: 1. Multivitamin 1 tab p.o. daily. 2. Hyzaar 50/12.5 one tablet p.o. daily. 3. Motrin 800 mg p.o. daily p.r.n. 4. Estrace 1 mg p.o. daily. 5. Adderall 20 mg p.o. b.i.d. ALLERGIES: None. PHYSICAL EXAMINATION: VITAL SIGNS ON PRESENTATION: Temperature 98.2, pulse 71, respirations 18, blood pressure 123/65, pulse ox 98% on room air. GENERAL APPEARANCE: Average built, lying in bed, tired appearing. EYES: Pupils equal. Conjunctivae normal. HENT: Oral cavity normal. NECK: JVD not raised. Mass not palpable. RESPIRATORY: Effort normal. LUNGS: Fair air entry. CARDIOVASCULAR: First and second sounds normal. No edema. ABDOMEN: Tender, dressing in place. Liver and spleen not palpable. Bowel sounds are sluggish. LYMPHATIC: No lymph node palpable in the neck or axillae. PSYCHIATRY: Alert and oriented x3. Mood and affect normal. NEUROLOGICAL: Pupils equal. Cranial nerves grossly intact. Power and sensation grossly intact. INVESTIGATIONS: White count 9.8, hemoglobin 12.8, potassium 3.9. CT scan of the abdomen suggestive of acute appendicitis. ASSESSMENT: 1. Acute appendicitis followed by appendectomy and lysis of adhesions. 2. Essential hypertension. 3. Attention deficit hyperactivity disorder. 4. Anxiety, not otherwise specified. 5. Chronic nicotine dependence. Patient an active cigarette smoker. PLAN: Patient is on IV Zosyn. Home medications will be resumed. Diet will be advanced per Surgery. Pain control is in place. Patient has got Venodyne boots for DVT prophylaxis. Patient advised against smoking, will be given a nicotine patch. Also told to use inspiratory spirometer and patient getting IV fluids. Care was discussed with the patient. Questions were answered. Thank you, Dr. Angelica Campuzano. MMREEMAL / JEOVANNYN: [id number] /
[2017-08-10 06:25] LABS: Basophils % (A) 0 %; CHCM 31.4; Eosinophils % (A) 0 %; HCT 32.1 % (34.0-46.0); HDW 2.34; HGB 10.1 gm/dL (11.4-16.0); Luc # (Auto) 0.17; Luc % (Auto) 1; Lymphocytes # (A) 1.2 k/uL (1.0-4.8); Lymphocytes % (A) 7 %; MCH 30.4 pg (25.0-35.0); MCHC 31.6 g/dL (31.0-37.0); MCV 96.3 fL (80.0-100.0); Mean Platelet Volume 8.8; Monocytes # (A) 0.8 k/uL (0-1.0); Monocytes % (A) 5 %; Neutrophils # (A) 14.2 k/uL (1.3-7.7); Neutrophils % (A) 87 %; RBC 3.33 m/uL (3.80-5.40); RDW 12.4 % (11.5-15.5); WBC 16.4 k/uL (3.8-10.6); WBC (Perox) 17.04
[2017-08-10 06:30] LABS: ALT 18 U/L (9-52); AST 17 U/L (14-36); Alkaline Phosphatase 67 U/L (38-126); Anion Gap 8 mmol/L; Blood Urea Nitrogen 7 mg/dL (7-17); Calcium 8.4 mg/dL (8.4-10.2); Carbon Dioxide 23 mmol/L (22-30); Chloride 107 mmol/L (98-107); Glucose 111 mg/dL (74-99); Non-African American GFR(MDRD) >60 (>60 ml/min/1.73 sqM); Sodium 138 mmol/L (137-145); Total Bilirubin 0.4 mg/dL (0.2-1.3); Total Protein 5.3 g/dL (6.3-8.2)
--- NOTE | 2017-08-10 08:50 | P.PN ---
Subjective Progress Note Date: 08/10/17 Principal diagnosis: Abdominal pain 57-year-old female being seen and examined this morning. Currently resting in bed just received IV dilaudid for pain management. Patient is talkative states cannot be off work and needs to return to work right away" reports no nausea vomiting white count down to 16.4 was 19.8 on admission. Temp maxed at 100 at midnight. Currently on IV Zosyn. Patient currently is tolerating a diet. Patient is postop August 09 appendectomy takedown of adhesions for acute appendicitis Objective - Vital Signs Vital signs: Vital Signs Temp 100.1 F H 08/10/17 00:05 Pulse 82 08/10/17 00:05 Resp 18 08/10/17 00:05 BP 96/55 08/10/17 00:05 Pulse Ox 97 08/10/17 00:05 Intake & Output 08/09/17 08/10/17 08/10/17 18:59 06:59 18:59 Intake Total 1150 2580 Output Total 120 Balance 1030 2580 Weight 67.132 kg Intake: IV 1150 Oral 2580 Output: Urine 100 Estimated Blood Loss 20 Other: Voiding Method Toilet # Voids 1 - Exam Physical exam 57-year-old female resting in bed ice packs to surgical site states pain medication effective for pain control Lungs essentially clear with adequate air movement on room air no cough noted Heart S1-S2 audible regular no murmur denying chest pain Abdomen surgical laparoscopic sites no redness surgical tenderness appropriate bowel tones present no nausea no vomiting no stool patient states has not passed any gas Extremities no edema noted - Labs CBC & Chem 7: 08/10/17 05:25 08/10/17 05:25 Labs: Abnormal Lab Results - Last 24 Hours (Table) 08/09/17 08/09/17 08/09/17 Range/Units 08:10 08:10 08:10 WBC 19.8 H (3.8-10.6) k/uL RBC (3.80-5.40) m/uL Hgb (11.4-16.0) gm/dL Hct (34.0-46.0) % Plt Count 148 L (150-450) k/uL Neutrophils # 16.9 H (1.3-7.7) k/uL Glucose 102 H (74-99) mg/dL Total Protein (6.3-8.2) g/dL Albumin (3.5-5.0) g/dL Urine Appearance Cloudy H (Clear) Urine Protein Trace H (Negative) Urine Blood Trace H (Negative) Urine WBC 8 H (0-5) /hpf Ur Squamous Epith Cells 9 H (0-4) /hpf Urine Bacteria Occasional H (None) /hpf Hyaline Casts 8 H (0-2) /lpf Urine Mucus Rare H (None) /hpf 08/10/17 08/10/17 Range/Units 05:25 05:25 WBC 16.4 H (3.8-10.6) k/uL RBC 3.33 L (3.80-5.40) m/uL Hgb 10.1 L (11.4-16.0) gm/dL Hct 32.1 L (34.0-46.0) % Plt Count 132 L (150-450) k/uL Neutrophils # 14.2 H (1.3-7.7) k/uL Glucose 111 H (74-99) mg/dL Total Protein 5.3 L (6.3-8.2) g/dL Albumin 3.0 L (3.5-5.0) g/dL Urine Appearance (Clear) Urine Protein (Negative) Urine Blood (Negative) Urine WBC (0-5) /hpf Ur Squamous Epith Cells (0-4) /hpf Urine Bacteria (None) /hpf Hyaline Casts (0-2) /lpf Urine Mucus (None) /hpf Microbiology - Last 24 Hours (Table) 08/09/17 14:40 Gram Stain - Preliminary Appendix Wound Culture - Preliminary 08/09/17 14:40 Anaerobic Culture - Preliminary Appendix Assessment and Plan Plan: Impression Present on admission right upper quadrant pain CAT scan abdomen and pelvis suspected acute appendicitis Present on admission leukocytosis suspect due to acute appendicitis white count 19,000 Colonoscopy 02/03/[address] San no acute findings no evidence of colorectal neoplasia History of attention deficit Anxiety disorder nonspecified Status post laparoscopic appendectomy appendectomy with takedown of adhesions for acute appendicitis done August 09 Plan Dulcolax suppository rectal now Increase activity Monitor labs repeat a CBC in the morning Diet advanced as tolerated Pain control IV Zosyn as ordered IV hydration Further recommendations pending The above impression and plan of care have been discussed and directed by signing physician. Kerri Winter nurse practitioner acting as scribe for signing physician.
[2017-08-10] MEDS: HEPARIN SODIUM,PORCINE 5,000 UNIT/ML 1 ML VIAL SQ SCH ×2 (09:25→23:52)
[2017-08-10] MEDS: FAMOTIDINE 20 MG TAB PO SCH ×2 (09:26→23:52)
[2017-08-10] MEDS: PANTOPRAZOLE 40 MG/10 ML VIAL IVP SCH (09:26)
[2017-08-10] MEDS: ESTRADIOL 0.5 MG TAB PO SCH (09:26)
[2017-08-10] MEDS: LOSARTAN-HCTZ 50-12.5 MG 1 EACH TAB PO SCH (09:30)
[2017-08-10] MEDS: MULTIVITAMINS, THERA 1 EACH TAB PO SCH (12:22)
[2017-08-10] MEDS ORDERED: BISACODYL 10 MG SUPP RECTAL STA (14:10)
--- NOTE | 2017-08-10 16:05 | P.PN ---
Progress Note - Text Progress Note Date: 08/10/17 DATE OF SERVICE: 08/10/2017 PRESENTING COMPLAINT: Right lower quadrant abdominal pain. Fever HISTORY OF PRESENT ILLNESS: 57-year-old female who developed fevers chills abdominal pain was getting worse. Came for further evaluation, diagnostic imaging consistent with physical signs of acute appendicitis. INTERVAL HISTORY: 08/10/2017: Patient seen in follow-up, just finished walking the hallways appears tired complaining of right lower quadrant pain states she feels very full of gas. Has not really moved her bowels nor has she passed any gas. ATE about 50% of her breakfast and tolerated it. Encouraged incentive spirometry use, and frequent ambulation. Patient verbalized understanding. REVIEW OF SYSTEMS: Done for constitutional ,cardiovascular, GI, pulmonary with relevant findings as above. CURRENT MEDICATIONS Jackson, Hyzaar 50/12.5, Zosyn 3.375 g IV piggyback. PHYSICAL EXAM VITAL SIGNS: Temperature 97.5, pulse 80, respiratory rate 16, blood pressure 107/58, oxygen saturation 96% on room air. GENERAL APPEARANCE: Sitting up in bed, not in distress. EYES: Pupils equal. Conjunctiva normal. NECK: JVD not raised. Mass not palpable. RESPIRATORY: Respiratory effort normal. Lungs clear to auscultation. CARDIOVASCULAR: First and second sounds normal. No edema. ABDOMEN: Soft. Liver and spleen not palpable. Mild right lower quadrant tenderness. No mass palpable. PSYCHIATRY: Alert and oriented x3. Mood and affect normal. INTEGUMENT: Surgical laparoscopic sites no redness mild tenderness. INVESTIGATIONS: White blood cell count 8.2, hemoglobin 8.9, Accu-Cheks noted. Hemoglobin A1c 6.5 ASSESSMENT: -Acute appendicitis followed by appendectomy and lysis of adhesions, improving -Acute blood loss anemia as expected from surgery -Essential hypertension. -Tent deficit hyperactivity disorder. -Anxiety, not otherwise specified. -Chronic nicotine dependence patient is an active smoker. PLAN: We'll continue IV antibiotics of Zosyn, diet advanced per surgical preference. Pain management in place per surgery. We'll continue to follow labs. Patient encouraged to ambulate and to utilize incentive spirometer. Plan of care discussed with the patient at the bedside she is in agreement. We will continue to follow closely. CONCERT SINGER statement: Patient was seen and examined by nurse practitioner Deonna Griffiths and all elements of the case discussed with attending Dr. Morales
[2017-08-10] MEDS: diphenhydrAMINE 25 MG CAP PO PRN ×2 (18:17→23:52)
--- NOTE | 2017-08-10 18:34 | PN ---
PROGRESS NOTE DATE OF SERVICE: 08/10/17. ATTENDING NOTE: This patient was seen and examined by me. I discussed with my nurse practitioner, Ms. Griffiths. Patient admitted with abdominal pain. Underwent appendectomy and lysis of adhesions. Did tolerate some diet. Has been up to the bathroom. Has not had a bowel movement or any flatus. Belly feels distended. No nausea or vomiting. PHYSICAL EXAMINATION: T-max 100.1, currently 98.5, pulse 59, blood pressure 91/52, lungs are clear. Cardiovascular first and second sounds normal. Abdomen slightly distended, soft, tender. Bowel sounds are sluggish. INVESTIGATIONS: White count 16.4. ASSESSMENT: 1. Status post appendectomy and lysis of adhesions. 2. Other medical conditions stable. 3. Leukocytosis from appendicitis slowly coming down. PLAN: Keep the patient on antibiotics. Encourage to ambulate. Follow with surgery. Care was discussed with the patient. Thank you, Dr. Angelica Campuzano. MMREEMAL / JEOVANNYN: [id number] /
[2017-08-11] MEDS: HYDROcodone/APAP 5-325MG 1 EACH TAB PO PRN ×6 (01:17→21:33)
[2017-08-11 06:56] LABS: Basophils % (A) 0 %; CH 29.8; CHCM 31.2; Eosinophils # (A) 0.1 k/uL (0-0.7); Eosinophils % (A) 1 %; HCT 30.5 % (34.0-46.0); HDW 2.45; HGB 9.7 gm/dL (11.4-16.0); Luc # (Auto) 0.08; Luc % (Auto) 1; Lymphocytes # (A) 2.6 k/uL (1.0-4.8); Lymphocytes % (A) 26 %; MCH 30.4 pg (25.0-35.0); MCHC 31.7 g/dL (31.0-37.0); MCV 95.8 fL (80.0-100.0); Mean Platelet Volume 8.8; Monocytes # (A) 0.4 k/uL (0-1.0); Monocytes % (A) 3 %; Neutrophils # (A) 7.1 k/uL (1.3-7.7); Neutrophils % (A) 69 %; RBC 3.19 m/uL (3.80-5.40); RDW 12.6 % (11.5-15.5); WBC 10.3 k/uL (3.8-10.6); WBC (Perox) 10.28
[2017-08-11 07:23] LABS: AST 76 U/L (14-36); Alkaline Phosphatase 115 U/L (38-126); Blood Urea Nitrogen 16 mg/dL (7-17); Calcium 8.3 mg/dL (8.4-10.2); Chloride 107 mmol/L (98-107); Glucose 91 mg/dL (74-99); Non-African American GFR(MDRD) >60 (>60 ml/min/1.73 sqM); Potassium 3.9 mmol/L (3.5-5.1); Sodium 138 mmol/L (137-145); Total Bilirubin 0.2 mg/dL (0.2-1.3); Total Protein 5.5 g/dL (6.3-8.2)
[2017-08-11 07:29] LABS: ALT 63 U/L (9-52); Anion Gap 8 mmol/L; Carbon Dioxide 23 mmol/L (22-30)
--- NOTE | 2017-08-11 08:23 | P.PN ---
Subjective Progress Note Date: 08/11/17 Principal diagnosis: Abdominal pain 57-year-old seen and examined at the bedside with Dr. Brown. Patient reports having abdominal cramping. Patient states she did ambulate in the hallway last evening pass a small amount of gas. Reportedly tolerating diet. States no stool urinating no difficulty no nausea no vomiting did note this morning the AST 76, ALT 63 total bili 0.2. 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 Did note in April 2017 AST was 29 the ALT was 39 on April 2017 reviewing computerized record patient did have an ultrasound to evaluate the right upper quadrant pain in March 2017 at that time it was followed up with an MRI of the liver reviewing the report showed no suspicious findings.. Patient states she's anxious to be discharged was reinforced by the surgeon the patient cannot return to work until seen in the follow-up surgical visit in the office patient was getting ready to be discharged this afternoon when patient reported to the nursing staff she felt feverish warm with a temp temp was 100.4. Abdomen was soft not distended patient stated pain control effective and current analgesics. No cough noted. Patient did state that she felt like she was having at shortness of breath at times sats on room air were 94% Objective - Vital Signs Vital signs: Vital Signs Temp 97.9 F 08/11/17 00:00 Pulse 68 08/11/17 00:00 Resp 16 08/11/17 00:00 BP 120/72 08/11/17 00:00 Pulse Ox 94 L 08/11/17 00:00 Intake & Output 08/10/17 08/11/17 08/11/17 18:59 06:59 18:59 Intake Total 480 Balance 480 Intake: Oral 480 Other: Voiding Method Toilet # Voids 3 1 - Exam Physical exam 57-year-old female seen and examined awake alert oriented 3 resting in bed does not appear in any acute distress Lungs essentially clear with adequate air movement on room air sats are 94% to 96% no cough noted no shortness of breath noted no conversational dyspnea noted Heart S1-S2 audible regular Abdomen soft surgical sites dry no redness bowel tones reports tolerating a diet stool after the Dulcolax was givenl no nausea no vomiting Extremities no edema noted - Labs CBC & Chem 7: 08/11/17 06:26 08/11/17 06:26 Labs: Abnormal Lab Results - Last 24 Hours (Table) 08/11/17 08/11/17 Range/Units 06:26 06:26 RBC 3.19 L (3.80-5.40) m/uL Hgb 9.7 L (11.4-16.0) gm/dL Hct 30.5 L (34.0-46.0) % Plt Count 132 L (150-450) k/uL Calcium 8.3 L (8.4-10.2) mg/dL AST 76 H (14-36) U/L ALT 63 H (9-52) U/L Total Protein 5.5 L (6.3-8.2) g/dL Albumin 3.0 L (3.5-5.0) g/dL Microbiology - Last 24 Hours (Table) 08/09/17 14:40 Gram Stain - Preliminary Appendix Wound Culture - Preliminary Gram Neg Bacilli Assessment and Plan Plan: Impression Present on admission right upper quadrant pain CAT scan abdomen and pelvis suspected acute appendicitis Present on admission leukocytosis suspect due to acute appendicitis white count 19,000 Colonoscopy 02/03/[address] San no acute findings no evidence of colorectal neoplasia History of attention deficit Anxiety disorder nonspecified Status post laparoscopic appendectomy appendectomy with takedown of adhesions for acute appendicitis done August 09 Postop AST and ALT mildly elevated Plan we'll repeat a CBC, CMP and a chest x-ray now for the elevated temperature Encourage the use of the incentive spirometer Hold on discharging now Consult infectious disease Dr. Alford Dulcolax suppository rectal now Increase activity Diet advanced as tolerated Pain control IV Zosyn as ordered IV hydration Further recommendations pending The above impression and plan of care have been discussed and directed by signing physician. Kerri Winter nurse practitioner acting as scribe for signing physician.
[2017-08-11] MEDS: diphenhydrAMINE 25 MG CAP PO PRN ×2 (08:56→23:54)
[2017-08-11] MEDS: PIPERACILLIN-TAZOBACTAM 3.375 GM in DEXTROSE/WATER 1 50ML.BAG IVPB SCH ×3 (08:57→23:54)
[2017-08-11] MEDS: FAMOTIDINE 20 MG TAB PO SCH ×2 (09:11→21:18)
[2017-08-11] MEDS: HEPARIN SODIUM,PORCINE 5,000 UNIT/ML 1 ML VIAL SQ SCH ×2 (09:11→21:19)
[2017-08-11] MEDS: ESTRADIOL 0.5 MG TAB PO SCH (09:11)
[2017-08-11] MEDS: LOSARTAN-HCTZ 50-12.5 MG 1 EACH TAB PO SCH (09:12)
[2017-08-11] MEDS: BISACODYL 10 MG SUPP RECTAL SCH (09:34)
[2017-08-11] MEDS: MULTIVITAMINS, THERA 1 EACH TAB PO SCH (13:24)
[2017-08-11] MEDS: SODIUM CHLORIDE 0.45% 1,000 ML IV SCH (13:52)
--- NOTE | 2017-08-11 14:05 | P.PN ---
Progress Note - Text Progress Note Date: 08/11/17 DATE OF SERVICE: 08/11/2017 PRESENTING COMPLAINT: Right lower quadrant abdominal pain. Fever HISTORY OF PRESENT ILLNESS: 57-year-old female who developed fevers chills abdominal pain was getting worse. Came for further evaluation, diagnostic imaging consistent with physical signs of acute appendicitis. INTERVAL HISTORY: 08/11/2017: Patient seen in follow-up, sitting up in the bed appears comfortable. Continues to have right lower quadrant pain, passing a lot of gas. No BM yet. appetite improving ate about 75% of her meal. Continue to encouraged incentive spirometry use frequent ambulation. 08/10/2017: Patient seen in follow-up, just finished walking the hallways appears tired complaining of right lower quadrant pain states she feels very full of gas. Has not really moved her bowels nor has she passed any gas. ATE about 50% of her breakfast and tolerated it. Encouraged incentive spirometry use, and frequent ambulation. Patient verbalized understanding. REVIEW OF SYSTEMS: Done for constitutional ,cardiovascular, GI, pulmonary with relevant findings as above. CURRENT MEDICATIONS [place], Hyzaar 50/12.5, Zosyn 3.375 g IV piggyback. PHYSICAL EXAM VITAL SIGNS: 98.3, pulse 69, respiratory rate 20, blood pressure 139/82, oxygen saturation 94 % on room air. GENERAL APPEARANCE: Sitting up in bed, not in distress. EYES: Pupils equal. Conjunctiva normal. NECK: JVD not raised. Mass not palpable. RESPIRATORY: Respiratory effort normal. Lungs faint crackles bilaterally to auscultation. CARDIOVASCULAR: First and second sounds normal. No edema. ABDOMEN: Soft. Liver and spleen not palpable. Mild right lower quadrant tenderness. No mass palpable. PSYCHIATRY: Alert and oriented x3. Mood and affect normal. INTEGUMENT: Surgical laparoscopic sites no redness mild tenderness. INVESTIGATIONS: White blood cell count 8.2, hemoglobin 8.9, Accu-Cheks noted. Hemoglobin A1c 6.5 ASSESSMENT: -Acute appendicitis followed by appendectomy and lysis of adhesions, improving -Acute blood loss anemia as expected from surgery -Essential hypertension. -Tent deficit hyperactivity disorder. -Anxiety, not otherwise specified. -Chronic nicotine dependence patient is an active smoker. PLAN: Patient developed a low-grade fever prior to discharge, surgery decided to hold the patient back, infectious disease was consulted, however this was canceled. We'll continue IV antibiotics of Zosyn, diet advanced per surgical preference. Pain management in place per surgery. Patient encouraged to ambulate and to utilize incentive spirometer. We'll see how she looks tomorrow. Plan of care discussed with the patient at the bedside she is in agreement. We will continue to follow closely. 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 Morales
[2017-08-11 14:29] LABS: Basophils # (A) 0.1 k/uL (0-0.2); Basophils % (A) 1 %; CH 30.9; CHCM 32.8; Eosinophils # (A) 0.1 k/uL (0-0.7); Eosinophils % (A) 1 %; HCT 31.9 % (34.0-46.0); HGB 10.2 gm/dL (11.4-16.0); Luc # (Auto) 0.08; Luc % (Auto) 1; Lymphocytes # (A) 2.3 k/uL (1.0-4.8); Lymphocytes % (A) 23 %; MCH 30.3 pg (25.0-35.0); MCHC 31.9 g/dL (31.0-37.0); MCV 94.9 fL (80.0-100.0); Mean Platelet Volume 9.3; Monocytes # (A) 0.5 k/uL (0-1.0); Monocytes % (A) 5 %; Neutrophils # (A) 6.8 k/uL (1.3-7.7); Neutrophils % (A) 70 %; RBC 3.36 m/uL (3.80-5.40); RDW 12.9 % (11.5-15.5); WBC 9.8 k/uL (3.8-10.6); WBC (Perox) 10.03
--- NOTE | 2017-08-11 14:36 | XR ---
EXAMINATION TYPE: XR chest 2V DATE OF EXAM: 08/11/2017 COMPARISON: Chest x-ray 07/19/2011, CT 08/09/2017 HISTORY: Postop day 1, atelectasis TECHNIQUE: Frontal and lateral views of the chest are obtained. FINDINGS: Patchy basilar density is present in the lung bases with minimal blunting of the costophre nuno angles. Minimal pneumoperitoneum is likely postoperative. Cardiomediastinal silhouette, pulmonary vascularity and stuart are stable. IMPRESSION: Basilar atelectasis, possible small effusions. Postop pneumoperitoneum.
[2017-08-11 14:47] LABS: ALT 76 U/L (9-52); AST 81 U/L (14-36); Alkaline Phosphatase 144 U/L (38-126); Anion Gap 9 mmol/L; Blood Urea Nitrogen 11 mg/dL (7-17); Calcium 8.7 mg/dL (8.4-10.2); Carbon Dioxide 24 mmol/L (22-30); Chloride 107 mmol/L (98-107); Glucose 103 mg/dL (74-99); Non-African American GFR(MDRD) >60 (>60 ml/min/1.73 sqM); Potassium 3.9 mmol/L (3.5-5.1); Sodium 140 mmol/L (137-145); Total Bilirubin 0.4 mg/dL (0.2-1.3); Total Protein 5.6 g/dL (6.3-8.2)
--- NOTE | 2017-08-11 17:53 | PN ---
PROGRESS NOTE DATE OF SERVICE: . This patient was seen and examined by me. I discussed with nurse practitioner, Ms. Griffiths. Patient admitted with acute appendicitis feeling better today. Did eat a little bit, passed some flatus. No bowel movement. Up and about. PHYSICAL EXAMINATION: Temperature 98.3, pulse 69, respiratory 20, blood pressure 13/82. ABDOMEN: Soft, tender. Bowel sounds are present. LUNGS: Clear. LABORATORY DATA: White count 9.8, potassium 3.9. ASSESSMENT: Status post appendectomy, lysis of adhesions. Other medical conditions stable. IV antibiotics. IV fluids. Follow with surgery. MMODL / IJN: [id number] /
[2017-08-11] MEDS: SENNOSIDES 8.6 MG TAB PO SCH (21:18)
[2017-08-12] MEDS: HYDROcodone/APAP 5-325MG 1 EACH TAB PO PRN ×3 (01:48→11:06)
[2017-08-12] MEDS: SODIUM CHLORIDE 0.45% 1,000 ML IV SCH ×2 (04:43→08:29)
[2017-08-12] MEDS: PIPERACILLIN-TAZOBACTAM 3.375 GM in DEXTROSE/WATER 1 50ML.BAG IVPB SCH (07:29)
[2017-08-12] MEDS: diphenhydrAMINE 25 MG CAP PO PRN (07:32)
[2017-08-12] MEDS: FAMOTIDINE 20 MG TAB PO SCH (07:39)
[2017-08-12] MEDS: ESTRADIOL 0.5 MG TAB PO SCH (07:39)
[2017-08-12] MEDS: HEPARIN SODIUM,PORCINE 5,000 UNIT/ML 1 ML VIAL SQ SCH (07:39)
[2017-08-12] MEDS: LOSARTAN-HCTZ 50-12.5 MG 1 EACH TAB PO SCH (07:40)
[2017-08-12] MEDS: SENNOSIDES 8.6 MG TAB PO SCH (07:40)
[2017-08-12 07:55] VITALS: BP 133/89; PULSE 60; RESP 16; TEMP 97.9
--- NOTE | 2017-08-12 08:57 | P.DS ---
Providers Date of admission: 08/09/17 15:19 Expected date of discharge: 08/12/17 Attending physician: Yashira Campuzano Consults: 08/09/17 12:08 Consult Physician Urgent Consulting Provider: Antoine Morales Consult Reason/Comments: Medical management Do you want consulting provider notified?: Yes Primary care physician: [facility] Course: 57-year-old female presented to the emergency room with a chief complaint of developing right-sided abdominal pain started the day before. Patient described the pain as sharp radiating to the right upper and lower side of the abdomen. Patient stated it seemed to be aggravated with any movement caused increased pain. sensation of nausea no active emesis. Patient denied any fever chills shortness breath chest pain nausea vomiting dizziness or lightheadedness. Patient denied any prior episodes. Patient was seen in the emergency room the white count was 19,000. Patient had a CAT scan of the abdomen and pelvis it was consistent with signs of acute appendicitis. Patient elected to undergo laparoscopic takedown of adhesions appendectomy for acute appendicitis Done on August 09 acute appendicitis was done for acute right upper quadrant abdominal pain with a CAT scan of the abdomen pelvis consistent with acute appendicitis with leukocytosis Patient states she's been in her usual state of health up until the current event. Patient does give a history of having a change in bowel habits with abdominal pain over the last year but felt like it was chronic felt that this pain was quite different. Patient stated that the pain that she was experiencing about a year ago was in the right upper quadrant felt there was abdominal bloating. No rectal bleeding. Patient did have a colonoscopy on February [address] San for change in bowel habits is an unremarkable study. Patient does have a history of an attention deficit and hypertension, anxiety disorder Additionally patient was worked up in March when he right upper quadrant pain for an ultrasound at that time patient had an MRI of the liver reviewing the report it showed no suspicious bowel dilatation. Simple appearing 1.2 cm cyst central and mid to lower pole level right kidney redemonstrated visual portions of the liver pancreas and both adrenal glands were normal in size and grossly unremarkable Postop the white count on the day of discharge was down to 10.3. Electrolytes within normal limits except AST was mildly elevated 76 ALT 63 alk phos 1:15. Patient labs would be repeated in one week. . Patient did have a chest x-ray done on August 11 it did show atelectasis. Aggressive pulmonary toileting was initiated patient was to use the incentive spirometer every 1 hour while awake On the day of discharge patient stated that she felt significantly better the abdominal pain had resolved was able to take in a deep breath pulse ox sats room air 96% patient was felt to be appropriate to proceed with a discharge Impression Present on admission right upper quadrant pain CAT scan abdomen and pelvis suspected acute appendicitis Present on admission leukocytosis suspect due to acute appendicitis white count 19,000 improved Colonoscopy 02/03/[address] San no acute findings no evidence of colorectal neoplasia History of attention deficit Anxiety disorder nonspecified Status post laparoscopic appendectomy appendectomy with takedown of adhesions for acute appendicitis done August 09 Postop AST and ALT mildly elevated Postop atelectasis as evident on a chest x-ray August 11 resolved The above impression and plan of care have been discussed and directed by signing physician. Kerri Winter nurse practitioner acting as scribe for signing physician. Patient Condition at Discharge: Good Plan - Discharge Summary New Discharge Prescriptions: New HYDROcodone/APAP 5-325MG [[place] 5-325] 1 each PO Q4HR PRN #30 tab PRN Reason: Moderate Pain Amoxicillin/Potassium Clav [Augmentin 875-125 Tablet] 1 tab PO Q12HR #14 tab Continue Dextroamphetamine/Amphetamine [Adderall] 20 mg PO BID Estradiol [Estrace] 1 mg PO DAILY Ibuprofen [Motrin] 800 mg PO DAILY PRN PRN Reason: Pain Multivitamins, Thera [Multivitamin (formulary)] 1 tab PO DAILY Losartan-Hctz 50-12.5 mg [Hyzaar 50-12.5] 1 tab PO DAILY Discharge Medication List Dextroamphetamine/Amphetamine [Adderall] 20 mg PO BID 05/09/14 [History] Estradiol [Estrace] 1 mg PO DAILY 02/02/17 [History] Ibuprofen [Motrin] 800 mg PO DAILY PRN 02/02/17 [History] Losartan-Hctz 50-12.5 mg [Hyzaar 50-12.5] 1 tab PO DAILY 08/09/17 [History] Multivitamins, Thera [Multivitamin (formulary)] 1 tab PO DAILY 08/09/17 [History ] Amoxicillin/Potassium Clav [Augmentin 875-125 Tablet] 1 tab PO Q12HR #14 tab 03/23 [Rx] HYDROcodone/APAP 5-325MG [[place] 5-325] 1 each PO Q4HR PRN #30 tab 08/11/17 [Rx] Follow up Appointment(s)/Referral(s): Randy Valdes MD [Primary Care Provider] - 1-2 days Yashira Campuzano MD [STAFF PHYSICIAN] - 08/17/17 3:40 pm (You have an appointment with Dr Barrios on Tuesday, Aug 17, 2017 at 3:40 pm.) Ambulatory/Diagnostic Orders: Comprehensive Metabolic Panel [LAB.AMB] Time Frame: 3 Days, Location: Determined By Patient Patient Instructions/Handouts: How to Use an Incentive Spirometer (DC), Laparoscopic Appendectomy (DC) Activity/Diet/Wound Care/Special Instructions: No lifting anything heavier than a milk carton until seen in follow-up visit Dr. Brown May shower No tub bath May not return to work until seen in follow-up surgical visit with Dr. Brown Notified Dr. Brown service of any increased abdominal pain fever chills increased redness at surgical site. No driving, no housework. Drink plenty of fluids. Continue to use your incentive spirometer 10 times per hour to keep your lungs clear. You may removed the large bandaids but leave the steri strips in place, they will fall off on their own. Discharge Disposition: HOME SELF-CARE
[2017-08-12] MEDS: MULTIVITAMINS, THERA 1 EACH TAB PO SCH (11:06)
[2017-08-12] MEDS: BISACODYL 10 MG SUPP RECTAL SCH (11:10)
--- NOTE | 2017-08-12 14:47 | P.PN ---
Progress Note - Text Progress Note Date: 08/12/17 DATE OF SERVICE: 08/12/2017 PRESENTING COMPLAINT: Right lower quadrant abdominal pain. Fever HISTORY OF PRESENT ILLNESS: 57-year-old female who developed fevers chills abdominal pain was getting worse. Came for further evaluation, diagnostic imaging consistent with physical signs of acute appendicitis. INTERVAL HISTORY: 08/12/2017: Patient seen in follow-up, sitting up in bed appears comfortable. Patient was scheduled for discharge yesterday however developed a low-grade fever, some crackles noted to the bases so surgery held her back. Infectious disease had been consulted however consult was canceled. Right lower quadrant pain improved , passed a lot of gas yesterday still no BM. Appetite improving eating between 75% and 100% of her meals. Ambulating in the room and del cid ways, utilizing her incentive spirometer. Condition has improved, surgery planning to discharge patient today. 08/11/2017: Patient seen in follow-up, sitting up in the bed appears comfortable. Continues to have right lower quadrant pain, passing a lot of gas. No BM yet. appetite improving ate about 75% of her meal. Continue to encouraged incentive spirometry use and frequent ambulation. 08/10/2017: Patient seen in follow-up, just finished walking the hallways appears tired complaining of right lower quadrant pain states she feels very full of gas. Has not really moved her bowels nor has she passed any gas. ATE about 50% of her breakfast and tolerated it. Encouraged incentive spirometry use, and frequent ambulation. Patient verbalized understanding. REVIEW OF SYSTEMS: Done for constitutional ,cardiovascular, GI, pulmonary with relevant findings as above. CURRENT MEDICATIONS [place], Hyzaar 50/12.5, Zosyn 3.375 g IV piggyback. PHYSICAL EXAM VITAL SIGNS: Temperature 97.9, pulse 60, respiratory rate 16, blood pressure 133/89, oxygen saturation 96% on room air. GENERAL APPEARANCE: Sitting up in bed, not in distress. EYES: Pupils equal. Conjunctiva normal. NECK: JVD not raised. Mass not palpable. RESPIRATORY: Respiratory effort normal. Lungs clear to auscultation. CARDIOVASCULAR: First and second sounds normal. No edema. ABDOMEN: Soft. Liver and spleen not palpable. Mild right lower quadrant tenderness. No mass palpable. PSYCHIATRY: Alert and oriented x3. Mood and affect normal. INTEGUMENT: Surgical laparoscopic sites no redness mild tenderness. INVESTIGATIONS: White blood cell count 8.2, hemoglobin 8.9, Accu-Cheks noted. Hemoglobin A1c 6.5 ASSESSMENT: -Acute appendicitis followed by appendectomy and lysis of adhesions, improving -Acute blood loss anemia as expected from surgery -Essential hypertension. -Attention deficit hyperactivity disorder. -Anxiety, not otherwise specified. -Chronic nicotine dependence patient is an active smoker. PLAN: Overall condition stable and improved from medical standpoint she is stable for discharge. 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 Morales
--- NOTE | 2017-08-12 18:51 | PN ---
PROGRESS NOTE DATE OF SERVICE: 08/12/2017 ATTENDING NOTE: This patient was seen and examined by me. I discussed the case with my nurse practitioner, Ms. Griffiths. Patient is doing much better. Did tolerate a diet. Has passed more flatus. Has not had a bowel movement. PHYSICAL EXAMINATION: Afebrile. LUNGS: Fair air entry. ABDOMEN: Soft. Minimal tenderness. Bowel sounds are present. LABS: White count 9.8. Patient is doing fine. Surgery will decide about going home from a surgical standpoint. Patient will get 7 days of antibiotics. Care was discussed with the patient. MMODL / IJN: [id number] /
== END 2017-08-12 12:45 | disposition home or self-care (01) | DRG 336 ==
LOC: EC 07:42 → 6PED 10:27 → OBSVTOIN 15:19 → 6PED 08-10 09:31
PROVIDERS: ADMIT Surgery; ATTEND Surgery
PROC: 0DNW4ZZ Release Peritoneum, Percutaneous Endoscopic Approach (ICD-10-PCS; 2017-08-09)
PROC: 0DTJ4ZZ Resection of Appendix, Percutaneous Endoscopic Approach (ICD-10-PCS; principal; 2017-08-09 12:10)
DX: K35.80 Unspecified acute appendicitis (principal); J98.11 Atelectasis; D62 Acute posthemorrhagic anemia; I10 Essential (primary) hypertension; F90.9 Attention-deficit hyperactivity disorder, unspecified type; K21.9 Gastro-esophageal reflux disease without esophagitis; M19.91 Primary osteoarthritis, unspecified site; K66.0 Peritoneal adhesions (postprocedural) (postinfection); F41.9 Anxiety disorder, unspecified; F17.210 Nicotine dependence, cigarettes, uncomplicated; Z79.890 Hormone replacement therapy; Z79.899 Other long term (current) drug therapy; Z85.41 Personal history of malignant neoplasm of cervix uteri; Z90.710 Acquired absence of both cervix and uterus
CPT/HCPCS: 36415; 71020; 74000; 74177; 80053; 81001; 82150; 83605; 83690; 85025; 87070; 87075; 87077; 87186; 87205; 88304; 96361; 96374; 96375; 96376; 99285

== ENCOUNTER 2017-08-13 14:01 | Emergency (ER) | payer BC, OTHER ==
[2017-08-13 14:08] VITALS: BP 120/75
--- NOTE | 2017-08-13 14:55 | ED ---
General Adult HPI - General Chief complaint: Recheck/Abnormal Lab/Rx Stated complaint: post op poss uti/incision problems Time Seen by Provider: 08/13/17 14:28 Source: patient, RN notes reviewed Mode of arrival: ambulatory Limitations: no limitations - History of Present Illness Initial comments: This is a 57-year-old female who is just status post a lap appendectomy who presents with complaints of not feeling well she's had decreased oral intake has had nausea she believes secondary to the Augmentin that she's on. She also complains some dysuria positive some slight fevers chills and sweats no constipation diarrhea she was instructed to come back for further evaluation she currently has some slightly elevated liver enzymes were for her discharge. Chest is complaining of the infraumbilical incision site coming apart somewhat. She has no other complaints - Related Data Home Medications Medication Instructions Recorded Confirmed Dextroamphetamine/Amphetamine 20 mg PO BID 05/09/14 08/13/17 [Adderall] Estradiol [Estrace] 1 mg PO DAILY 02/02/17 08/13/17 Ibuprofen [Motrin] 800 mg PO DAILY PRN 02/02/17 08/13/17 Losartan-Hctz 50-12.5 mg [Hyzaar 1 tab PO DAILY 08/09/17 08/13/17 50-12.5] Multivitamins, Thera [Multivitamin 1 tab PO DAILY 08/09/17 08/13/17 (formulary)] HYDROcodone/APAP 5-325MG [[place] 1 tab PO Q4HR PRN 08/13/17 08/13/17 5-325] Previous Rx's Medication Instructions Recorded Amoxicillin/Potassium Clav 1 tab PO Q12HR #14 tab 08/11/17 [Augmentin 875-125 Tablet] Sulfamethox-Tmp 800-160Mg [Bactrim 2 each PO Q12HR #40 tab 08/13/17 DS 800-160 mg] Allergies Allergy/AdvReac Type Severity Reaction Status Date / Time No Known Allergies Allergy Verified 08/13/17 14:10 Review of Systems ROS Statement: Those systems with pertinent positive or pertinent negative responses have been documented in the HPI. ROS Other: All systems not noted in ROS Statement are negative. Past Medical History Past Medical History: Cancer, GERD/Reflux, Hypertension Additional Past Medical History / Comment(s): HX OF CERVICAL CANCER, ARTHRITIS AND LOW BACK PAIN History of Any Multi-Drug Resistant Organisms: None Reported Past Surgical History: Section, Hysterectomy Additional Past Surgical History / Comment(s): "BONE TUMOR " REMOVED LEFT HIP Past Anesthesia/Blood Transfusion Reactions: No Reported Reaction, Motion Sickness Past Psychological History: ADD/ADHD, Anxiety Smoking Status: Former smoker Past Alcohol Use History: Occasional Past Drug Use History: None Reported - Past Family History Sister(s) Family Medical History: No Reported History General Exam - General Exam Comments Initial Comments: This is a well-developed well-nourished awake alert oriented 3 female Limitations: no limitations General appearance: alert, anxious Head exam: Present: atraumatic, normocephalic, normal inspection Eye exam: Present: normal appearance, PERRL, EOMI. Absent: scleral icterus, conjunctival injection, periorbital swelling ENT exam: Present: normal exam, mucous membranes moist Neck exam: Present: normal inspection. Absent: tenderness, meningismus, lymphadenopathy Respiratory exam: Present: normal lung sounds bilaterally. Absent: respiratory distress, wheezes, rales, rhonchi, stridor Cardiovascular Exam: Present: regular rate, normal rhythm, normal heart sounds. Absent: systolic murmur, diastolic murmur, rubs, gallop, clicks GI/Abdominal exam: Present: soft, normal bowel sounds, other (Examination of the port sites there are dressings applied no evidence of any erythema. I did evaluate the infraumbilical port site no gross dehiscence or drainage or erythema.). Absent: distended, tenderness, guarding, rebound, rigid Extremities exam: Present: normal inspection, full ROM, normal capillary refill. Absent: tenderness, pedal edema, joint swelling, calf tenderness Back exam: Present: normal inspection Neurological exam: Present: alert, oriented X3, CN II-XII intact Psychiatric exam: Present: normal affect, normal mood Skin exam: Present: warm, dry, intact, normal color. Absent: rash Course Vital Signs 08/13/17 14:05 Temperature 98.5 F Pulse Rate 81 Respiratory 20 Rate Blood Pressure 120/75 O2 Sat by Pulse 95 Oximetry Medical Decision Making - Medical Decision Making I did review the lab work with the patient as well as with Dr. Brown patient will be discharged she'll be switched from Augmentin to Bactrim she is increase oral fluids follow-up with her doctor return when necessary - Lab Data Result diagrams: 10/07/17 15:05 08/13/17 15:05 Lab Results 08/13/17 08/13/17 08/13/17 Range/Units 15:05 15:05 15:05 WBC 8.2 (3.8-10.6) k/uL RBC 4.60 (3.80-5.40) m/uL Hgb 14.1 D (11.4-16.0) gm/dL Hct 42.2 (34.0-46.0) % MCV 91.8 (80.0-100.0) fL MCH 30.6 (25.0-35.0) pg MCHC 33.4 (31.0-37.0) g/dL RDW 12.6 (11.5-15.5) % Plt Count 275 (150-450) k/uL Neutrophils % 82 % Lymphocytes % 11 % Monocytes % 4 % Eosinophils % 2 % Basophils % 0 % Neutrophils # 6.7 (1.3-7.7) k/uL Lymphocytes # 0.9 L (1.0-4.8) k/uL Monocytes # 0.3 (0-1.0) k/uL Eosinophils # 0.2 (0-0.7) k/uL Basophils # 0.0 (0-0.2) k/uL Sodium 135 L (137-145) mmol/L Potassium 4.1 (3.5-5.1) mmol/L Chloride 100 (98-107) mmol/L Carbon Dioxide 22 (22-30) mmol/L Anion Gap 13 mmol/L BUN 13 (7-17) mg/dL Creatinine 0.63 (0.52-1.04) mg/dL Est GFR (MDRD) Af Amer >60 (>60 ml/min/1.73 sqM) Est GFR (MDRD) Non-Af >60 (>60 ml/min/1.73 sqM) Glucose 130 H (74-99) mg/dL Calcium 9.3 (8.4-10.2) mg/dL Magnesium 1.7 (1.6-2.3) mg/dL Total Bilirubin 0.4 (0.2-1.3) mg/dL AST 36 (14-36) U/L ALT 64 H (9-52) U/L Alkaline Phosphatase 192 H (38-126) U/L Total Protein 7.0 (6.3-8.2) g/dL Albumin 4.0 (3.5-5.0) g/dL Amylase <30 L (30-110) U/L Lipase 54 (23-300) U/L Urine Color Yellow Urine Appearance Clear (Clear) Urine pH 6.0 (5.0-8.0) Ur Specific [place] 1.007 (1.001-1.035) Urine Protein Negative (Negative) Urine Glucose (UA) Negative (Negative) Urine Ketones Negative (Negative) Urine Blood Trace H (Negative) Urine Nitrite Negative (Negative) Urine Bilirubin Negative (Negative) Urine Urobilinogen <2.0 (<2.0) mg/dL Ur Leukocyte Esterase Negative (Negative) Urine RBC 1 (0-5) /hpf Urine WBC <1 (0-5) /hpf Ur Squamous Epith Cells 3 (0-4) /hpf Amorphous Sediment Rare H (None) /hpf Disposition Clinical Impression: Encounter for wound re-check, Gastritis Disposition: HOME SELF-CARE Condition: Good Instructions: Gastritis (ED) Additional Instructions: Stop taking the Augmentin and start the Bactrim as suggested. Increase oral fluids follow-up with Dr. Kevin Higgins as planned Prescriptions: Sulfamethox-Tmp 800-160Mg [Bactrim DS 800-160 mg] 2 each PO Q12HR #40 tab Referrals: Randy Valdes MD [Primary Care Provider] - 1-2 days
[2017-08-13 15:16] LABS: Basophils % (A) 0 %; CH 30.2; Eosinophils # (A) 0.2 k/uL (0-0.7); Eosinophils % (A) 2 %; HCT 42.2 % (34.0-46.0); HDW 2.58; Luc # (Auto) 0.11; Luc % (Auto) 1; Lymphocytes # (A) 0.9 k/uL (1.0-4.8); Lymphocytes % (A) 11 %; MCH 30.6 pg (25.0-35.0); MCHC 33.4 g/dL (31.0-37.0); MCV 91.8 fL (80.0-100.0); Mean Platelet Volume 7.7; Monocytes # (A) 0.3 k/uL (0-1.0); Monocytes % (A) 4 %; Neutrophils # (A) 6.7 k/uL (1.3-7.7); Neutrophils % (A) 82 %; RDW 12.6 % (11.5-15.5); WBC 8.2 k/uL (3.8-10.6); WBC (Perox) 8.31
[2017-08-13 15:18] LABS: Amorphous Sediment,Urine Rare /hpf; Appearance,Urine Clear (Clear); Bilirubin,Urine Negative (Negative); Glucose,Urine (UA) Negative (Negative); Ketones,Urine Negative (Negative); Leukocyte Esterase,Urine Negative (Negative); Nitrite,Urine Negative (Negative); Particle Count 658; Protein,Urine Negative (Negative); RBC,Urine 1 /hpf (0-5); Specific Gravity,Urine 1.007 (1.001-1.035); Squamous Epithelial Cell,Urine 3 /hpf (0-4); UA Billing (MACRO vs. MICRO) MICRO; Urobilinogen,Urine <2.0 mg/dL (<2.0); WBC,Urine <1 /hpf (0-5)
[2017-08-13 15:20] LABS: HGB 14.1 gm/dL (11.4-16.0)
[2017-08-13 15:25] LABS: ALT 64 U/L (9-52); AST 36 U/L (14-36); Alkaline Phosphatase 192 U/L (38-126); Amylase <30 U/L (30-110); Anion Gap 13 mmol/L; Blood Urea Nitrogen 13 mg/dL (7-17); Calcium 9.3 mg/dL (8.4-10.2); Carbon Dioxide 22 mmol/L (22-30); Chloride 100 mmol/L (98-107); Glucose 130 mg/dL (74-99); Magnesium 1.7 mg/dL (1.6-2.3); Non-African American GFR(MDRD) >60 (>60 ml/min/1.73 sqM); Potassium 4.1 mmol/L (3.5-5.1); Sodium 135 mmol/L (137-145); Total Bilirubin 0.4 mg/dL (0.2-1.3)
[2017-08-13 16:01] VITALS: PULSE 80; RESP 16; TEMP 97.9
== END 2017-08-13 16:01 | disposition home or self-care (01) ==
LOC: EC 14:01
DX: K29.70 Gastritis, unspecified, without bleeding (principal); Z48.01 Encounter for change or removal of surgical wound dressing; I10 Essential (primary) hypertension; F90.9 Attention-deficit hyperactivity disorder, unspecified type; Z85.41 Personal history of malignant neoplasm of cervix uteri; Z87.891 Personal history of nicotine dependence; Z79.3 Long term (current) use of hormonal contraceptives; Z79.899 Other long term (current) drug therapy
CPT/HCPCS: 36415; 80053; 81001; 82150; 83690; 83735; 85025; 99283

== ENCOUNTER → 2017-08-24 | Outpatient (CLI) | payer BC, OTHER ==
[2017-08-24 13:43] LABS: ALT 42 U/L (9-52); AST 26 U/L (14-36); Alkaline Phosphatase 108 U/L (38-126); Anion Gap 11 mmol/L; Blood Urea Nitrogen 16 mg/dL (7-17); Carbon Dioxide 26 mmol/L (22-30); Chloride 100 mmol/L (98-107); Glucose 104 mg/dL (74-99); Non-African American GFR(MDRD) >60 (>60 ml/min/1.73 sqM); Potassium 5.5 mmol/L (3.5-5.1); Sodium 137 mmol/L (137-145); Total Bilirubin 0.6 mg/dL (0.2-1.3); Total Protein 7.2 g/dL (6.3-8.2)
[2017-08-24 13:48] LABS: CH 30.1; HCT 42.1 % (34.0-46.0); HDW 2.44; HGB 13.1 gm/dL (11.4-16.0); MCH 29.6 pg (25.0-35.0); MCHC 31.2 g/dL (31.0-37.0); MCV 94.9 fL (80.0-100.0); Mean Platelet Volume 7.2; RBC 4.44 m/uL (3.80-5.40); RDW 12.6 % (11.5-15.5); WBC 7.3 k/uL (3.8-10.6)
[2017-08-24 14:05] LABS: Appearance,Urine Clear (Clear); Bilirubin,Urine Negative (Negative); Glucose,Urine (UA) Negative (Negative); Ketones,Urine Negative (Negative); Leukocyte Esterase,Urine Negative (Negative); Nitrite,Urine Negative (Negative); Protein,Urine Negative (Negative); Specific Gravity,Urine 1.013 (1.001-1.035); UA Billing (MACRO vs. MICRO) CHEM; Urobilinogen,Urine <2.0 mg/dL (<2.0)
== END | disposition home or self-care (01) ==
LOC: LABWHC1 12:23
PROVIDERS: ATTEND Surgery
DX: K35.80 Unspecified acute appendicitis (principal); N39.0 Urinary tract infection, site not specified
CPT/HCPCS: 36415; 80053; 81003; 85027

== ENCOUNTER → 2018-11-02 | Outpatient (CLI) | payer BC ==
--- NOTE | 2018-11-06 09:31 | MM ---
Reason for exam: screening (asymptomatic). Last mammogram was performed 2 years and 3 months ago. History: Patient history of other cancer. Took estrogen for 11 years 5 months beginning at age 43. Physical Findings: A clinical breast exam by your physician is recommended on an annual basis and results should be correlated with mammographic findings. MG 3D Screening Mammo W/Cad Bilateral CC and MLO view(s) were taken. Prior study comparison: August 12, 2016, bilateral MG screening mammo w CAD. March 11, 2015, bilateral MG screening mammo w CAD. The breast tissue is heterogeneously dense. This may lower the sensitivity of mammography. No significant changes when compared with prior studies. ASSESSMENT: Benign, BI-RAD 2 RECOMMENDATION: Routine screening mammogram of both breasts in 1 year.
== END | disposition home or self-care (01) ==
LOC: RADMAMWWP 16:09
PROVIDERS: ATTEND Obstetrics & Gynecology
DX: Z12.31 Encounter for screening mammogram for malignant neoplasm of breast (principal)
CPT/HCPCS: 77063; 77067

== ENCOUNTER 2019-01-12 15:04 | Observation (INO) | payer BC ==
--- NOTE | 2019-01-12 15:33 | ED ---
General Adult HPI - General Chief complaint: Chest Pain Stated complaint: Chest pain Time Seen by Provider: 01/12/19 15:18 Source: patient, RN notes reviewed, old records reviewed Mode of arrival: wheelchair Limitations: no limitations - History of Present Illness Initial comments: 58-year-old female presents for evaluation of left-sided chest pain. Symptoms have been present for the past several days, she states pain is intermittent. Does not seem to be specifically exertional. She may have the pain at rest. She does feel her symptoms are improved while laying flat. She does report some dyspnea associated with her symptoms. She states they worsened over the past 2 hours and she's felt increased fatigue. Denies abdominal pain or vomiting. Patient has no history of CAD, no history of DVT or PE. She has no family history of coronary artery disease. She does report some radiation to her left shoulder and neck. No fever or chills, no URI symptoms. - Related Data Home Medications Medication Instructions Recorded Confirmed Dextroamphetamine/Amphetamine 20 mg PO BID 05/09/14 01/12/19 [Adderall] Ibuprofen [Motrin] 800 mg PO DAILY PRN 02/02/17 01/12/19 Losartan-Hctz 50-12.5 mg [Hyzaar 1 tab PO DAILY 08/09/17 01/12/19 50-12.5] Multivitamins, Thera [Multivitamin 1 tab PO DAILY 08/09/17 01/12/19 (formulary)] Aspirin [[place] Aspirin EC] 81 mg PO DAILY 01/12/19 01/12/19 Potassium 99 mg PO DAILY 01/12/19 01/12/19 Testosterone Cypionate 25 mg IM TH 01/12/19 01/12/19 [Depo-Testosterone] Turmeric Root Extract [Turmeric] 500 mg PO DAILY 01/12/19 01/12/19 Allergies Allergy/AdvReac Type Severity Reaction Status Date / Time No Known Allergies Allergy Verified 01/12/19 16:11 Review of Systems ROS Statement: Those systems with pertinent positive or pertinent negative responses have been documented in the HPI. ROS Other: All systems not noted in ROS Statement are negative. Past Medical History Past Medical History: Cancer, GERD/Reflux, Hypertension Additional Past Medical History / Comment(s): HX OF CERVICAL CANCER, ARTHRITIS AND LOW BACK PAIN History of Any Multi-Drug Resistant Organisms: None Reported Past Surgical History: Section, Hysterectomy Additional Past Surgical History / Comment(s): "BONE TUMOR " REMOVED LEFT HIP Past Anesthesia/Blood Transfusion Reactions: No Reported Reaction, Motion Sickness Past Psychological History: ADD/ADHD, Anxiety Smoking Status: Former smoker Past Alcohol Use History: Occasional Past Drug Use History: None Reported - Past Family History Sister(s) Family Medical History: No Reported History General Exam Limitations: no limitations General appearance: alert, in no apparent distress Head exam: Present: atraumatic, normocephalic Eye exam: Present: normal appearance, PERRL ENT exam: Present: normal exam Neck exam: Present: normal inspection. Absent: tenderness, meningismus Respiratory exam: Present: normal lung sounds bilaterally. Absent: respiratory distress, wheezes, rales Cardiovascular Exam: Present: regular rate, normal rhythm GI/Abdominal exam: Present: soft. Absent: distended, tenderness, guarding Extremities exam: Absent: calf tenderness Neurological exam: Present: alert, oriented X3, CN II-XII intact. Absent: motor sensory deficit Psychiatric exam: Present: normal affect, normal mood Skin exam: Present: warm, dry, intact. Absent: cyanosis, diaphoretic Course Vital Signs 01/12/19 01/12/19 01/12/19 15:07 15:39 15:40 Temperature 98.1 F Pulse Rate 92 82 Pulse Rate [ 89 Sweet Potato Disintegrator ] Respiratory 18 18 Rate Blood Pressure 128/68 133/80 O2 Sat by Pulse 99 98 Oximetry EKG Findings - EKG Comments: EKG Findings:: EKG: Normal sinus rhythm, rate of 91, NH interval 128, QRS duration 92, QTC 440, no ST segment elevation Medical Decision Making - Medical Decision Making 58 -year-old female presenting for evaluation of chest pain. Patient has some typical and atypical features. No known history of CAD, no family history. Patient is otherwise healthy and quite active. Workup in the emergency department EKG: Normal sinus rhythm with no ST segment changes. Patient has normal CBC, normal CMP, negative d-dimer, negative troponin. Patient will be kept in observation for telemetry, serial cardiac enzymes, and cardiology consultation. Case discussed with Dr. Morales, will accept admission. - Lab Data Result diagrams: 01/12/19 15:29 01/12/19 15:29 Lab Results 01/12/19 01/12/19 01/12/19 Range/Units 15:29 15:29 15:29 WBC 7.5 (3.8-10.6) k/uL RBC 4.69 (3.80-5.40) m/uL Hgb 13.9 (11.4-16.0) gm/dL Hct 42.3 (34.0-46.0) % MCV 90.1 (80.0-100.0) fL MCH 29.5 (25.0-35.0) pg MCHC 32.8 (31.0-37.0) g/dL RDW 13.2 (11.5-15.5) % Plt Count 155 (150-450) k/uL Neutrophils % 61 % Lymphocytes % 30 % Monocytes % 6 % Eosinophils % 1 % Basophils % 1 % Neutrophils # 4.5 (1.3-7.7) k/uL Lymphocytes # 2.2 (1.0-4.8) k/uL Monocytes # 0.4 (0-1.0) k/uL Eosinophils # 0.1 (0-0.7) k/uL Basophils # 0.1 (0-0.2) k/uL PT (9.0-12.0) sec INR (<1.2) APTT (22.0-30.0) sec D-Dimer (<0.60) mg/L FEU Sodium 142 (137-145) mmol/L Potassium 4.0 (3.5-5.1) mmol/L Chloride 102 (98-107) mmol/L Carbon Dioxide 29 (22-30) mmol/L Anion Gap 11 mmol/L BUN 27 H (7-17) mg/dL Creatinine 0.93 (0.52-1.04) mg/dL Est GFR (CKD-EPI)AfAm 80 (>60 ml/min/1.73 sqM) Est GFR (CKD-EPI)NonAf 69 (>60 ml/min/1.73 sqM) Glucose 92 (74-99) mg/dL Calcium 9.9 (8.4-10.2) mg/dL Magnesium 1.8 (1.6-2.3) mg/dL Total Bilirubin 0.6 (0.2-1.3) mg/dL AST 29 (14-36) U/L ALT 31 (9-52) U/L Alkaline Phosphatase 83 (38-126) U/L Troponin I (0.000-0.034) ng/mL NT-Pro-B Natriuret Pep 33 pg/mL Total Protein 7.4 (6.3-8.2) g/dL Albumin 4.7 (3.5-5.0) g/dL 01/12/19 01/12/19 Range/Units 15:29 15:29 WBC (3.8-10.6) k/uL RBC (3.80-5.40) m/uL Hgb (11.4-16.0) gm/dL Hct (34.0-46.0) % MCV (80.0-100.0) fL MCH (25.0-35.0) pg MCHC (31.0-37.0) g/dL RDW (11.5-15.5) % Plt Count (150-450) k/uL Neutrophils % % Lymphocytes % % Monocytes % % Eosinophils % % Basophils % % Neutrophils # (1.3-7.7) k/uL Lymphocytes # (1.0-4.8) k/uL Monocytes # (0-1.0) k/uL Eosinophils # (0-0.7) k/uL Basophils # (0-0.2) k/uL PT 10.0 (9.0-12.0) sec INR 0.9 (<1.2) APTT 23.1 (22.0-30.0) sec D-Dimer 0.24 (<0.60) mg/L FEU Sodium (137-145) mmol/L Potassium (3.5-5.1) mmol/L Chloride (98-107) mmol/L Carbon Dioxide (22-30) mmol/L Anion Gap mmol/L BUN (7-17) mg/dL Creatinine (0.52-1.04) mg/dL Est GFR (CKD-EPI)AfAm (>60 ml/min/1.73 sqM) Est GFR (CKD-EPI)NonAf (>60 ml/min/1.73 sqM) Glucose (74-99) mg/dL Calcium (8.4-10.2) mg/dL Magnesium (1.6-2.3) mg/dL Total Bilirubin (0.2-1.3) mg/dL AST (14-36) U/L ALT (9-52) U/L Alkaline Phosphatase (38-126) U/L Troponin I <0.012 (0.000-0.034) ng/mL NT-Pro-B Natriuret Pep pg/mL Total Protein (6.3-8.2) g/dL Albumin (3.5-5.0) g/dL Disposition Clinical Impression: Chest pain Disposition: ADMITTED IP TO THIS [facility] Condition: Stable Is patient prescribed a controlled substance at d/c from ED?: No Referrals: Randy Valdes MD [Primary Care Provider] - 1-2 days Decision to Admit Reason: Admit from EC Decision Date: 01/12/19 Decision Time: 17:09
[2019-01-12 15:49] LABS: Basophils # (A) 0.1 k/uL (0-0.2); Basophils % (A) 1 %; Eosinophils # (A) 0.1 k/uL (0-0.7); Eosinophils % (A) 1 %; HCT 42.3 % (34.0-46.0); HGB 13.9 gm/dL (11.4-16.0); Lymphocytes # (A) 2.2 k/uL (1.0-4.8); Lymphocytes % (A) 30 %; MCH 29.5 pg (25.0-35.0); MCHC 32.8 g/dL (31.0-37.0); MCV 90.1 fL (80.0-100.0); Mean Platelet Volume 7.9; Monocytes # (A) 0.4 k/uL (0-1.0); Monocytes % (A) 6 %; Neutrophils # (A) 4.5 k/uL (1.3-7.7); Neutrophils % (A) 61 %; Platelet Count 155 k/uL (150-450); RBC 4.69 m/uL (3.80-5.40); RDW 13.2 % (11.5-15.5); WBC 7.5 k/uL (3.8-10.6)
--- NOTE | 2019-01-12 15:59 | XR ---
EXAMINATION TYPE: XR chest 2V DATE OF EXAM: 01/12/2019 COMPARISON: 08/11/2017 HISTORY: Chest pain TECHNIQUE: Frontal and lateral views of the chest are obtained. FINDINGS: There is no focal air space opacity, pleural effusion, or pneumothorax seen. The cardiac silhouette size is within normal limits. The osseous structures are intact. There is a mild levosco liosis of the thoracic spine. There is resolution of the previously seen trace pleural effusions and pneumoperitoneum. IMPRESSION: No acute cardiopulmonary process.
[2019-01-12 16:01] LABS: Albumin 4.7 g/dL (3.5-5.0); Calcium 9.9 mg/dL (8.4-10.2); Magnesium 1.8 mg/dL (1.6-2.3); Total Bilirubin 0.6 mg/dL (0.2-1.3); Total Protein 7.4 g/dL (6.3-8.2)
[2019-01-12 16:12] LABS: D-Dimer 0.24 mg/L FEU (<0.60); INR 0.9 (<1.2)
[2019-01-12 16:13] LABS: Partial Thromboplastin Time 23.1 sec (22.0-30.0)
[2019-01-12] MEDS ORDERED: ONDANSETRON 4 MG/2 ML VIAL IVP PRN (17:05)
[2019-01-12] MEDS ORDERED: MORPHINE SULFATE 4 MG/ML SYRINGE IV PRN (17:05)
[2019-01-12] MEDS ORDERED: ACETAMINOPHEN TAB 325 MG TAB PO PRN (17:05)
[2019-01-12] MEDS ORDERED: ASPIRIN 325 MG TAB PO STA (17:05)
[2019-01-12] MEDS ORDERED: NALOXONE 0.4 MG/ML 1 ML VIAL IV PRN (17:05)
[2019-01-12] MEDS ORDERED: NITROGLYCERIN SL TABS 0.4 MG TAB SUBLINGUAL PRN (17:06)
[2019-01-12] MEDS: TEMAZEPAM 15 MG CAP PO SCH (23:10)
--- NOTE | 2019-01-13 00:07 | HP ---
HISTORY AND PHYSICAL DATE OF ADMISSION: 01/12/2019. DATE OF SERVICE: 01/12/2019. PRESENTING COMPLAINT: Chest pain. HISTORY OF PRESENTING COMPLAINT: This is a 58-year-old patient Dr. Valdes whose chronic stable medical conditions include GERD, hypertension, cervical cancer, arthritis, anxiety, ADHD. 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 Today she came back after lunch break to her workplace and she was feeling very tired, exhausted. Pain in the upper part of the chest, worse with moving her head. Appetite fair. Bowels are okay. The patient does not rest enough. The patient does go to the gym about 3 to 4 times a week. Also does stretching exercises and exercises. REVIEW OF SYSTEMS: CONSTITUTIONAL: Always tired. HEENT: None. CARDIOVASCULAR: As above. RESPIRATORY: None. GASTROINTESTINAL: None. GENITOURINARY: None. MUSCULOSKELETAL: As above. DERMATOLOGICAL, HEMATOLOGIC, LYMPHATIC: None. PSYCHIATRY: Anxious. NEUROLOGICAL: None. PAST MEDICAL HISTORY: GERD, hypertension, cervical cancer, arthritis. PAST SURGICAL HISTORY: , hysterectomy, bone tumor removed from left hip. PSYCH HISTORY: ADHD, anxiety. SOCIAL HISTORY: Smokes 1 to 2 cigarettes a day. 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 May smoke 1 or 2 cigarettes a day and has 1 or 2 glasses of wine at night. The patient is single. FAMILY HISTORY: Paternal grandfather at the age of 55 of a heart attack. HOME MEDICATIONS: 1. Turmeric 500 mg a day. 2. 25 mg IM on . 3. Potassium 99 mg a day. 4. Multivitamin 1 tablet p.o. daily. 5. Hyzaar 50/12.5 one tab p.o. daily. 6. Motrin 800 mg daily p.r.n. 7. Inderal 20 mg b.i.d. 8. Aspirin 81 mg p.o. daily. ALLERGIES: None. PHYSICAL EXAMINATION: VITAL SIGNS: Temperature 97.6, pulse 80, respirations 17, blood pressure 104/65, pulse ox 97% on room air. GENERAL APPEARANCE: Sitting up, somewhat anxious, restless. EYES: Pupils equal. Conjunctivae normal. HEENT: External nose and ears normal. Oral cavity normal. NECK: JVD not raised. Mass not palpable. Respiratory effort normal. LUNGS: Clear. CARDIOVASCULAR: 1st and 2nd sounds normal. No edema. ABDOMEN: Soft, nontender. Liver and spleen not palpable. LYMPHATIC: No lymph nodes palpable in the neck or axillae. PSYCHIATRY: Alert and oriented x3. Mood and affect normal. NEUROLOGIC: Pupils equal. Cranial nerves grossly intact. Power and sensation grossly intact. INVESTIGATIONS: White count 7.5, hemoglobin 13.9, potassium 4.0, BUN 27, creatinine 0.93. Troponin x2 negative. EKG tracing reviewed by me personally shows normal sinus rhythm. Chest x-ray film personally reviewed by me shows minimal hyperinflation. Lung pompa are clear. ASSESSMENT: 1. This patient has months of rather long time pain in the upper chest wall. Today had more pain, just felt not well, especially when turning her head. Has been rather anxious. I am wondering if some of these also an effect of the testosterone she takes. 2. Anxiety disorder not otherwise specified. 3. Rule out cardiac cause. 4. Gastroesophageal reflux disease. 5. Essential hypertension. 6. ADHD with anxiety disorder. PLAN: Serial cardiac enzymes in place. Home medications resumed. The patient is already on aspirin. Cardiology has been consulted. MMODL / IJN: [id number] /
[2019-01-13 04:11] LABS: Basophils # (A) 0.1 k/uL (0-0.2); Basophils % (A) 1 %; Eosinophils # (A) 0.2 k/uL (0-0.7); Eosinophils % (A) 2 %; HCT 41.2 % (34.0-46.0); HGB 13.6 gm/dL (11.4-16.0); Lymphocytes # (A) 2.7 k/uL (1.0-4.8); Lymphocytes % (A) 41 %; MCH 30.3 pg (25.0-35.0); MCHC 32.9 g/dL (31.0-37.0); MCV 92.2 fL (80.0-100.0); Mean Platelet Volume 8.6; Monocytes # (A) 0.4 k/uL (0-1.0); Monocytes % (A) 6 %; Neutrophils # (A) 3.1 k/uL (1.3-7.7); Neutrophils % (A) 48 %; Platelet Count 133 k/uL (150-450); RBC 4.47 m/uL (3.80-5.40); RDW 13.3 % (11.5-15.5); WBC 6.5 k/uL (3.8-10.6)
[2019-01-13 04:25] LABS: Calcium 9.2 mg/dL (8.4-10.2)
[2019-01-13] MEDS ORDERED: NON-FORMULARY DRUG (Dextroamphetamine/Amphetamine [Adderall] 20 MG) PO SCH (09:00)
[2019-01-13] MEDS ORDERED: ASPIRIN 325 MG TAB PO SCH (09:00)
[2019-01-13] MEDS ORDERED: NON-FORMULARY DRUG (Potassium [Potassium] 99 MG) PO SCH (09:00)
[2019-01-13] MEDS: LOSARTAN-HCTZ 50-12.5 MG 1 EACH TAB PO SCH (09:55)
[2019-01-13] MEDS: ASPIRIN 81 MG PO SCH (09:56)
[2019-01-13] MEDS: MULTIVITAMINS, THERA 1 EACH TAB PO SCH (13:50)
[2019-01-13] MEDS: PATIENT'S OWN (Dextroamphetamine/Amphetamine [Adderall] 20 MG) PO SCH (13:50)
--- NOTE | 2019-01-13 14:32 | P.CRDCN ---
History of Present Illness History of present illness: This is a pleasant 58 showed female past medical history significant for hypertension, gastroesophageal reflux disease, ADHD, anxiety and chronic nicotine dependence. She denies history of coronary artery disease, dyslipidemia or diabetes mellitus. She does not follow regularly with a wrapping checker. We've been asked to see her in consultation secondary to chest discomfort. She states she has been feeling chest discomfort intermittently for the previous few months. The pain is described as a heavy sharp sensation in the left precordial region with radiation to the left shoulder. She states when she gets the pain is very intense and painful to touch. She also describes having increased fatigue and intermittent diaphoresis over the previous few months as well. The diaphoresis is not necessarily associated chest discomfort however is intermittent. She denies associated shortness of breath, dizziness, nausea, vomiting or palpitations. She is very active female and exercises daily. She denies exertional chest discomfort while she is exercising. She also states she is under an extreme amount of stress lately and is currently going through divorce. She states she drinks 1-2 drinks per night. EKG reveals sinus mechanism with no acute ST or T wave abnormalities noted. Chest x-ray is negative for an acute cardiopulmonary process. Laboratory data reviewed, WBC 6.5, hemoglobin 13.6, platelets 133, d-dimer 0.24, sodium 138, potassium 4.0, creatinine 1.18, magnesium 1.8, cardiac enzymes negative 3, LDL 138, HDL 41, TSH 2.94. Current cardiac medications include losartan/hctz 50/12.5 daily and aspirin 81 mg daily. At the time of my exam: CONSTITUTIONAL: Denies fever. Denies chills. EYES: Denies blurred vision. Denies vision changes. Denies eye pain. EARS, NOSE, MOUTH & THROAT: Denies headache. Denies sore throat. Denies ear pain. CARDIOVASCULAR: Denies chest pain. Denies shortness of breath. Denies orthopnea. Denies PND. Denies palpitations. RESPIRATORY: Denies cough. GASTROINTESTINAL: Denies abdominal pain. Denies diarrhea. Denies constipation. Denies nausea. Denies vomiting. MUSCULOSKELETAL: Denies myalgias. INTEGUMENTARY: Denies pruitis. Denies rash. NEUROLOGIC: Denies numbness. Denies tingling. Denies weakness. PSYCHIATRIC: Denies anxiety. Denies depression. ENDOCRINE: Denies fatigue. Denies weight change. Denies polydipsia. Denies umer yurina. GENITOURINARY: Denies burning, hematuria or urgency with micturation. HEMATOLOGIC: Denies history of anemia. Denies bleeding. Blood pressure 134/74 heart rate 82 afebrile maintaining oxygen saturation on room air GENERAL: This is a 58-year-old female in no apparent distress at the time of my examination. HEENT: Head is atraumatic, normocephalic. Pupils are equal, round. Sclerae anicteric. Conjunctivae are clear. Mucous membranes of the mouth are moist. Neck is supple. There is no jugular venous distention. No carotid bruit is heard. LUNGS: Clear to auscultation no wheezes, rales or rhonchi. No chest wall tenderness is noted on palpation or with deep breathing. HEART: Regular rate and rhythm without murmurs, rubs or gallops. S1 and S2 heard. ABDOMEN: Soft, nontender. Bowel sounds are heard. No organomegaly noted. EXTREMITIES: No evidence of peripheral edema and no calf tenderness noted. VASCULAR: Radial and dorsalis pedis pulses palpated, no evidence of clubbing. NEUROLOGIC: Patient is awake, alert and oriented x3. ASSESSMENT Chest pain, atypical for angina. An acute coronary event has been ruled out. Hypertension Dyslipidemia Chronic nicotine dependence Daily alcohol intake Anxiety PLAN An acute coronary event has been ruled out. Obtain 2D echocardiogram and doppler study to assess cardiac structure and function. I have asked the patient to increase activity and ambulation in the halls and assess for ongoing symptoms of chest discomfort. If she continues to remain chest pain-free she may be stable to be discharged home with a normal echocardiogram and follow-up in the office for outpatient stress testing. If she develops exertional chest pain we will consider stress testing on Tuesday. Smoking cessation recommended. her overall 10-year risk for cardiovascular disease is 10.7% and therefore she should be initiated on a moderate intensity statin. Thank you kindly for this consultation. Nurse Practitioner note has been reviewed, I agree with a documented findings and plan of care. Patient was seen and examined. Past Medical History Past Medical History: Cancer, GERD/Reflux, Hypertension Additional Past Medical History / Comment(s): HX OF CERVICAL CANCER, ARTHRITIS AND LOW BACK PAIN History of Any Multi-Drug Resistant Organisms: None Reported Past Surgical History: Section, Hysterectomy Additional Past Surgical History / Comment(s): "BONE TUMOR " REMOVED LEFT HIP Past Anesthesia/Blood Transfusion Reactions: No Reported Reaction, Motion Sickness Past Psychological History: ADD/ADHD, Anxiety Smoking Status: Former smoker Past Alcohol Use History: Occasional Additional Past Alcohol Use History / Comment(s): STATES SMOKING 1-2 CIGARETTES PER DAY. SMOKING FOR 3-4 YEARS. Past Drug Use History: None Reported - Past Family History Sister(s) History Unknown: Yes Family Medical History: No Reported History Additional Family Medical History / Comment(s): Paternal grandfather at 54 of a heart attack and mother has a heart murmur Medications and Allergies Home Medications Medication Instructions Recorded Confirmed Type Dextroamphetamine/Amphetamine 20 mg PO BID 05/09/14 01/12/19 History [Adderall] Ibuprofen [Motrin] 800 mg PO DAILY PRN 02/02/17 01/12/19 History Losartan-Hctz 50-12.5 mg [Hyzaar 1 tab PO DAILY 08/09/17 01/12/19 History 50-12.5] Multivitamins, Thera [Multivitamin 1 tab PO DAILY 08/09/17 01/12/19 History (formulary)] Aspirin [[place] Aspirin EC] 81 mg PO DAILY 01/12/19 01/12/19 History Potassium 99 mg PO DAILY 01/12/19 01/12/19 History Testosterone Cypionate 25 mg IM TH 01/12/19 01/12/19 History [Depo-Testosterone] Turmeric Root Extract [Turmeric] 500 mg PO DAILY 01/12/19 01/12/19 History Allergies Allergy/AdvReac Type Severity Reaction Status Date / Time No Known Allergies Allergy Verified 01/12/19 16:11 Physical Exam Vitals: Vital Signs Temp Pulse Pulse Resp BP BP Pulse Ox 01/13/19 04:00 97.2 F L 88 17 125/69 97 01/13/19 00:00 82 17 01/12/19 23:59 97.6 F 82 17 132/72 97 01/12/19 20:00 97.6 F 82 17 114/65 97 01/12/19 17:53 97 F L 70 16 136/79 100 01/12/19 17:29 78 16 130/81 97 01/12/19 15:40 82 18 133/80 98 01/12/19 15:39 89 01/12/19 15:07 98.1 F 92 18 128/68 99 Intake and Output 01/12/19 01/13/19 01/13/19 22:59 06:59 14:59 Intake Total 1200 Output Total 0 Balance 0 1200 Intake: Oral 1200 Output: Urine 0 Other: Voiding Method Toilet Toilet # Voids 1 Weight 68.039 kg 71.9 kg Results 01/13/19 03:37 01/13/19 03:37 Cardiac Enzymes 01/12/19 01/12/19 01/12/19 Range/Units 15:29 15:29 18:05 AST 29 (14-36) U/L Troponin I <0.012 <0.012 (0.000-0.034) ng/mL 01/13/19 Range/Units 03:37 AST (14-36) U/L Troponin I <0.012 (0.000-0.034) ng/mL Coagulation 01/12/19 Range/Units 15:29 PT 10.0 (9.0-12.0) sec APTT 23.1 (22.0-30.0) sec CBC 01/12/19 01/13/19 Range/Units 15:29 03:37 WBC 7.5 6.5 (3.8-10.6) k/uL RBC 4.69 4.47 (3.80-5.40) m/uL Hgb 13.9 13.6 (11.4-16.0) gm/dL Hct 42.3 41.2 (34.0-46.0) % Plt Count 155 133 L (150-450) k/uL Comprehensive Metabolic Panel 01/12/19 01/13/19 Range/Units 15:29 03:37 Sodium 142 138 (137-145) mmol/L Potassium 4.0 4.0 (3.5-5.1) mmol/L Chloride 102 103 (98-107) mmol/L Carbon Dioxide 29 27 (22-30) mmol/L BUN 27 H 30 H (7-17) mg/dL Creatinine 0.93 1.18 H (0.52-1.04) mg/dL Glucose 92 115 H (74-99) mg/dL Calcium 9.9 9.2 (8.4-10.2) mg/dL AST 29 (14-36) U/L ALT 31 (9-52) U/L Alkaline Phosphatase 83 (38-126) U/L Total Protein 7.4 (6.3-8.2) g/dL Albumin 4.7 (3.5-5.0) g/dL Current Medications Generic Name Dose Route Start Last Admin Trade Name Freq PRN Reason Stop Dose Admin Acetaminophen 650 mg 01/12/19 17:05 01/12/19 18:10 Tylenol Tab PO 650 mg Q6HR PRN Administration Mild Pain or Fever > 100.5 Aspirin 325 mg 01/13/19 09:00 01/13/19 09:55 Aspirin PO 325 mg DAILY [facility] Administration Aspirin 81 mg 01/13/19 09:00 01/13/19 09:56 Aspirin PO Not Given DAILY [facility] HCTZ/Losartan Potassium 1 each 01/13/19 09:00 01/13/19 09:55 Hyzaar 50-12.5 PO 1 each DAILY [facility] Administration Morphine Sulfate 4 mg 01/12/19 17:05 Morphine Sulfate (Inj) IV Q4HR PRN Severe Pain Multivitamins 1 each 01/13/19 12:00 Theragran PO DAILY@1200 [facility] Naloxone HCl 0.2 mg 01/12/19 17:05 Narcan IV Q2M PRN Opioid Reversal Nitroglycerin 0.4 mg 01/12/19 17:06 01/12/19 18:12 Nitrostat SUBLINGUAL 0.4 mg Q5M PRN Administration Chest Pain Non-Formulary Medication 20 mg 01/13/19 09:00 01/13/19 09:53 Dextroamphetamine/Amphetamine [Adderall] PO Not Given BID [facility] Non-Form. Drug ( 25 mg 01/18/19 09:00 Testosterone IM Cypionate [Depo- Th@0900 [facility] Testosterone] 25 Mg) Ondansetron HCl 4 mg 01/12/19 17:05 Zofran IVP Q8HR PRN Nausea And Vomiting Temazepam 15 mg 01/12/19 21:45 01/12/19 23:10 Restoril PO 15 mg HS POOL Administration Intake and Output 01/12/19 01/13/19 01/13/19 22:59 06:59 14:59 Intake Total 1200 Output Total 0 Balance 0 1200 Intake: Oral 1200 Output: Urine 0 Other: Voiding Method Toilet Toilet # Voids 1 Weight 68.039 kg 71.9 kg 01/13/19 03:37 01/13/19 03:37
[2019-01-13] MEDS ORDERED: RX INFO: IV CONTRAST WAS GIVEN 1 EACH MISC MISCELLANE PRN (15:54)
--- NOTE | 2019-01-13 17:03 | CT ---
EXAMINATION TYPE: CT chest angio for PE DATE OF EXAM: 01/13/2019 COMPARISON: NONE HISTORY: SOB, R/O PE CT DLP: 245.4 mGycm. Automated Exposure Control for Dose Reduction was Utilized. CONTRAST: CTA scan of the thorax is performed with IV Contrast, patient injected with 100 mL of Isovue 370, pul monary embolism protocol. MIP Images are created on CT scanner and reviewed. FINDINGS: LUNGS: Minimal biapical pleural parenchymal scarring is noted. There is a 3 mm solid pulmonary nodule within the right lower lobe on image 83 on lung algorithm. The lungs are grossly clear, there is no concerning parenchymal mass or nodule identified. There is no pleural effusion or pneumothorax seen . The tracheobronchial tree is patent. MEDIASTINUM: There is satisfactory enhancement of the pulmonary artery and its branches, there is no CT evidence for pulmonary embolism. There are no greater than 1 cm hilar or mediastinal lymph nodes. No cardiomegaly or pericardial effusion is seen. OTHER: Geographic hypoattenuation near the fissure for the falciform ligament may represent hepatic s teatosis. The liver is enlarged extending into the left upper quadrant. Minimal multilevel degenerati ve change of the thoracic spine is noted. IMPRESSION: 1. No evidence of pulmonary embolus. 2. Solid right lower lobe 3 mm pulmonary nodule. Consensus criteria recommends follow-up CT thorax in 12 months to ensure stability for nodules of this size. 3. Geographic region of hypoattenuation within the hepatic parenchyma most commonly relates to focal fatty infiltration although could be confirmed with three-phase enhanced CT abdomen.
--- NOTE | 2019-01-13 17:22 | ECHOF ---
Referral Reason: MEASUREMENTS -------- HEIGHT: 172.7 cm WEIGHT: 71.2 kg BP: 125/69 RVIDd: 3.1 cm (< 3.3) IVSd: 1.0 cm (0.6 - 1.1) LVIDd: 4.1 cm (3.9 - 5.3) LVPWd: 1.0 cm (0.6 - 1.1) IVSs: 1.2 cm LVIDs: 3.3 cm LVPWs: 1.6 cm LA Diam: 3.4 cm (2.7 - 3.8) LAESV Index (A-L): 27.42 ml/m Ao Diam: 2.9 cm (2.0 - 3.7) AV Cusp: 1.8 cm (1.5 - 2.6) MV EXCURSION: 17.614 mm (> 18.000) MV EF SLOPE: 110 mm/s (70 - 150) EPSS: 0.6 cm MV E Kevin: 0.81 m/s MV DecT: 265 ms MV A Kevin: 0.65 m/s MV E/A Ratio: 1.25 RAP: 5.00 mmHg RVSP: 15.95 mmHg FINDINGS -------- Sinus rhythm. This was a technically good study. The left ventricular size is normal. Left ventricular wall thickness is normal. Overall left vent ricular systolic function is normal with, an EF between 60 - 65 %. The right ventricle is normal in size. Normal LA size by volume 22+/-6 ml/m2. The right atrium is normal in size. The aortic valve is trileaflet and appears structurally normal. The mitral valve is normal. Mild tricuspid regurgitation present. Right ventricular systolic pressure is normal at < 35 mmHg. Trace/mild (physiologic) pulmonic regurgitation. The aortic root size is normal. Normal inferior vena cava with normal inspiratory collapse consistent with estimated right atrial pre ssure of 5 mmHg. There is no pericardial effusion. CONCLUSIONS -------- 1. Sinus rhythm. 2. This was a technically good study. 3. The left ventricular size is normal. 4. Left ventricular wall thickness is normal. 5. Overall left ventricular systolic function is normal with, an EF between 60 - 65 %. 6. The right ventricle is normal in size. 7. Normal LA size by volume 22+/-6 ml/m2. 8. The right atrium is normal in size. 9. The aortic valve is trileaflet and appears structurally normal. 10. The mitral valve is normal. 11. Mild tricuspid regurgitation present. 12. Right ventricular systolic pressure is normal at < 35 mmHg. 13. Trace/mild (physiologic) pulmonic regurgitation. 14. The aortic root size is normal. 15. Normal inferior vena cava with normal inspiratory collapse consistent with estimated right atrial pressure of 5 mmHg. 16. There is no pericardial effusion. MANAGER CALL CENTER: Kenna Candelaria RDCS
[2019-01-13] MEDS: ATORVASTATIN 40 MG TAB PO SCH (18:07)
--- NOTE | 2019-01-13 20:23 | PN ---
PROGRESS NOTE DATE OF SERVICE: January 13, 2019. PRESENTING COMPLAINT: Chest pressure. INTERVAL HISTORY: The patient has a few medical problems, actually very active, under some personal stress, presents with upper chest pain especially with exertion. Still having episodes of upper chest tightness with activity. Troponins have been negative. REVIEW OF SYSTEMS: Done for constitutional, cardiovascular, GI, pulmonary; relevant findings as above. CURRENT MEDICATIONS: Current medications are reviewed. PHYSICAL EXAMINATION: VITAL SIGNS: Temperature 98.1, pulse 68, respiratory rate 16, blood pressure 123/74. Pulse ox 98% on room air. GENERAL APPEARANCE: Sitting up, somewhat anxious. EYES: Pupils equal. Conjunctivae normal. NECK: JVD not raised. Mass not palpable. RESPIRATORY: Effort normal. LUNGS are clear. CARDIOVASCULAR: 1st and 2nd sounds no edema. ABDOMEN: Soft, nontender. Liver and spleen not palpable. PSYCHIATRY: Alert and oriented x3. Mood and affect anxious-appearing. INVESTIGATIONS: White count 6.5, hemoglobin 13.6, potassium 4.0, BUN 30, creatinine 1.18, LDL 138. TSH is normal. ASSESSMENT: 1. Rule out pulmonary embolism. 2. Upper chest tightness with activity, still need to rule out a cardiac cause. The patient actually continues to have the same symptoms. 3. Anxiety disorder not otherwise specified. 4. Gastroesophageal reflux disease. 5. Essential hypertension. 6. Attention-deficit/hyperactivity disorder with anxiety disorder. PLAN: CT scan of the chest for pulmonary embolism ruled it did come back showing that there was no PE. The patient is still having chest pressure with activity. Hence we will await probably for stress test on Tuesday. MMODL / IJN: [id number] /
[2019-01-13] MEDS: TEMAZEPAM 15 MG CAP PO SCH (23:17)
[2019-01-14] MEDS: LOSARTAN-HCTZ 50-12.5 MG 1 EACH TAB PO SCH (08:08)
[2019-01-14] MEDS: ATORVASTATIN 40 MG TAB PO SCH (08:08)
[2019-01-14] MEDS: MULTIVITAMINS, THERA 1 EACH TAB PO SCH (08:08)
[2019-01-14] MEDS: ASPIRIN 81 MG PO SCH (08:08)
[2019-01-14] MEDS: PATIENT'S OWN (Dextroamphetamine/Amphetamine [Adderall] 20 MG) PO SCH ×2 (08:14→17:09)
--- NOTE | 2019-01-14 08:35 | US ---
EXAMINATION TYPE: US abdomen limited DATE OF EXAM: 01/14/2019 COMPARISON: CT dated 01/13/2019 and 08/09/2017, US dated 04/05/2017, MRI dated 04/27/2017 CLINICAL HISTORY: enlarged liver on CT. ABN CT, Chest pain EXAM MEASUREMENTS: Liver Length: 14.9 cm Gallbladder Wall: 0.2 cm CBD: 0.7 cm Right Kidney: 11.3 x 4.2 x 4.9 cm Pancreas: wnl, tail obscured by overlying bowel gas Liver: Probable hemangioma right lobe near raeann as seen on previous= 3.2 x 2.1 x 2.4 cm, liver pare nchyma hypoechoic/attenuating Gallbladder: Slightly contracted, lumen clear Evidence for sonographic [place]'s sign: No CBD: ?Dilated Right Kidney: wnl IMPRESSION: Hemangioma left lobe of liver is a chronic finding. There may be underlying hepatocellula r disease, hepatic steatosis. Somewhat limited exam.
--- NOTE | 2019-01-14 16:52 | US ---
EXAMINATION TYPE: US venous doppler duplex LE BI DATE OF EXAM: 01/14/2019 2:15 P CLINICAL HISTORY: pain. Pt states left leg pain SIDE PERFORMED: Bilateral TECHNIQUE: The lower extremity deep venous system is examined utilizing real time linear array sonog nadira with graded compression, doppler sonography and color-flow sonography. VESSELS IMAGED: External Iliac Vein (EIV) Common Femoral Vein Deep Femoral Vein Greater Saphenous Vein * Femoral Vein Popliteal Vein Small Saphenous Vein * Proximal Calf Veins (* superficial vessels) There is normal flow, compressibility, vascular waveforms. Right Leg: Negative for DVT Left Leg: Negative for DVT IMPRESSION: No evident deep venous thrombosis at or above the knees
[2019-01-14] MEDS ORDERED: LACTULOSE 20 GM/30 ML CUP PO ONE (17:52)
--- NOTE | 2019-01-14 18:05 | PN ---
PROGRESS NOTE DATE OF SERVICE: January 14, 2019. PRESENT COMPLAINT: Chest pressure. INTERVAL HISTORY: Patient presented with chest pressure, still having chest pressure and hence she was held back. Cardiology planning for a stress test on Tuesday. PE was ruled out. The patient did have some cramps when she came. She is concerned about a DVT. There are no other specific clinical findings, but since she is concerned. Doppler ultrasound is being ordered. REVIEW OF SYSTEMS: Done for constitutional, cardiovascular, GI, pulmonary; relevant findings as above. CURRENT MEDICATIONS: Reviewed. PHYSICAL EXAMINATION: VITAL SIGNS: Temperature 98, pulse 75, respiration 16, blood pressure 129/82, pulse ox 97% on room air. GENERAL APPEARANCE: Sitting up, awake. EYES: Pupils equal. Conjunctivae normal. NECK: JVD not raised. Mass not palpable. RESPIRATORY: Effort normal. LUNGS are clear. CARDIOVASCULAR: 1st and 2nd sounds normal. No edema. ABDOMEN: Soft, nontender. Liver and spleen not palpable. PSYCHIATRY: Alert and oriented x3. Mood and affect anxious-appearing. INVESTIGATIONS: Abdominal ultrasound shows hemangioma of the left liver and hepatic steatosis. ASSESSMENT: 1. Hepatic steatosis with hemangioma. 2. Chest tightness. Awaiting a stress test as per Cardiology. 3. Anxiety disorder not otherwise specified. 4. Gastroesophageal reflux disease. 5. Essential hypertension. 6. Attention-deficit/hyperactivity disorder with anxiety disorder. PLAN: Doppler ultrasound of lower extremity has been ordered to rule out DVT because of the patient's concern. We will have patient to follow up with Gastroenterology for the hepatic steatosis as an outpatient and hemangioma. Awaiting stress test as per Cardiology. MMODL / IJN: [id number] /
[2019-01-14] MEDS: TEMAZEPAM 15 MG CAP PO SCH (20:59)
[2019-01-15 07:47] VITALS: RESP 16
[2019-01-15] MEDS: ATORVASTATIN 40 MG TAB PO SCH (12:29)
[2019-01-15] MEDS: LOSARTAN-HCTZ 50-12.5 MG 1 EACH TAB PO SCH (12:29)
[2019-01-15] MEDS: MULTIVITAMINS, THERA 1 EACH TAB PO SCH (12:29)
[2019-01-15] MEDS: ASPIRIN 81 MG PO SCH (12:29)
--- NOTE | 2019-01-15 12:48 | ECHOS ---
STRESS ECHOCARDIOGRAM DATE OF SERVICE: 01/15/2019 INDICATIONS: Chest pain. MEDICATIONS: Aspirin, potassium, tumeric, losartan, multivitamins, ibuprofen. BASELINE HEART RATE: 69 BASELINE BLOOD PRESSURE: 112/71 MAXIMUM HEART RATE: 145 MAXIMUM BLOOD PRESSURE: 174/62 85% MPHR: 139 100% MPHR: 164 METS: 12.3 MAXIMUM STAGE REACHED: IV TOTAL EXERCISE TIME: 12 minutes 8 seconds CLINICAL INFORMATION: Baseline rhythm is sinus mechanism, rate 69, normal axis and intervals, normal electrocardiogram. Baseline blood pressure 112/71 mmHg. Patient exercised on Kar for 12 minute and 8 seconds reaching a peak rate 145 beats per minute which is equal to 88% maximum predicted heart rate. Peak blood pressure 174/62 mmHg. The test was terminated secondary to fatigue. There was no chest pain. Electrocardiograph monitoring revealed no evidence of diagnostic ischemic ST deviation. Baseline echocardiogram revealed normal wall thickening and motion. At peak exercise, there was normal wall motion augmentation with no hypokinesis or dyskinesis. CONCLUSION: 1. Good exercise tolerance with normal electrocardiograph response to exercise. 2. Normal stress echocardiogram with no evidence of stress induced ischemia. MMODL / IJN: [id number] /
--- NOTE | 2019-01-15 13:39 | P.PN ---
Subjective This is a pleasant 58 showed female past medical history significant for hypertension, gastroesophageal reflux disease, ADHD, anxiety and chronic nicotine dependence. She continues to have intermittent symptoms of non-specific pains in the right anterior chest wall at times with no specific aggravating or alleviating factors. She denies shortness of breath, dizziness or palpitations. Telemetry tracings have been unremarkable. CT angios the chest obtained is negative for pulmonary embolism with a solid right lower lobe 3 mm pulmonary nodule noted. Abdomen the ultrasound reveals hemangioma of the left lobe of the liver which is chronic with possible underlying hepatocellular disease and hepatic steatosis. Bilateral venous duplex negative for DVT. Blood pressure 130/84 heart rate 57 afebrile maintaining oxygen saturation on room air. GENERAL: This is a 58-year-old female in no apparent distress at the time of my examination. HEENT: Head is atraumatic, normocephalic. Pupils are equal, round. Sclerae anicteric. Conjunctivae are clear. Mucous membranes of the mouth are moist. Neck is supple. There is no jugular venous distention. No carotid bruit is heard. LUNGS: Clear to auscultation no wheezes, rales or rhonchi. No chest wall tenderness is noted on palpation or with deep breathing. HEART: Regular rate and rhythm without murmurs, rubs or gallops. S1 and S2 heard. EXTREMITIES: No evidence of peripheral edema and no calf tenderness noted. ASSESSMENT Chest pain, atypical for angina. An acute coronary event has been ruled out. Hypertension Dyslipidemia Chronic nicotine dependence Daily alcohol intake Anxiety PLAN Stress test is normal, she is stable for discharge from a cardiac perspective. Ongoing medical management. Follow up with Dr. Brar in 2 weeks. We will continue to follow as needed, please feel free to call with further questions or concerns. Nurse Practitioner note has been reviewed, I agree with a documented findings and plan of care. Patient was seen and examined. Objective - Vital Signs Vital signs: Vital Signs Temp 97.8 F 01/15/19 07:00 Pulse 57 L 01/15/19 07:00 Resp 16 01/15/19 07:00 BP 130/84 01/15/19 07:00 Pulse Ox 95 01/15/19 12:20 Intake & Output 01/14/19 01/15/19 01/15/19 18:59 06:59 18:59 Intake Total 200 730 Output Total 2 Balance 198 730 Intake: Oral 200 730 Output: Urine 2 Other: Voiding Method Toilet Toilet # Voids 2 - Labs CBC & Chem 7: 01/13/19 03:37 01/13/19 03:37
[2019-01-15 16:21] VITALS: BP 132/88; PULSE 60; TEMP 97.9
[2019-01-15] MEDS: PATIENT'S OWN (Dextroamphetamine/Amphetamine [Adderall] 20 MG) PO SCH ×2 (16:59→19:25)
[2019-01-18] MEDS ORDERED: [UNRECOGNIZED DRUG - REMARK] IM SCH (09:00)
--- NOTE | 2019-01-19 07:31 | DS ---
DISCHARGE SUMMARY DATE OF ADMISSION: 01/12/2019 DATE OF DISCHARGE: 01/15/2019 FINAL DIAGNOSES: 1. Chest tightness, could be psychosomatic from underlying anxiety. 2. Anxiety disorder, not otherwise specified. 3. Gastroesophageal reflux disease. 4. Essential hypertension. 5. Attention deficit hyperactivity disorder. 6. Hepatic steatosis with hemangioma. CONSULTATION: Dr. Kumar from Cardiology. HOSPITAL COURSE: This patient presented with some chest tightness, rather atypical. The patient did have a stress echocardiogram that was negative. A 2-D echocardiogram showed preserved LV function. The patient had some leg cramping before she came in. Doppler ultrasound was negative for DVT. Chest CTA was negative for PE. The patient seems to have a hepatic steatosis with hemangioma. The patient is told to follow up with GI for the same. I did tell her to use some mindfulness techniques to help her rest. Otherwise, patient is very active. She has stresses in personal life including taking care of her handicapped child. She is very good at her work and also just moved . PHYSICAL EXAMINATION: On examination, temperature 97.9, pulse 60, respirations 16, blood pressure 132/88, pulse ox 98% on room air. Lungs are clear CARDIOVASCULAR: First and second sounds normal. ABDOMEN: Soft, nontender. DISCHARGE MEDICATIONS: 1. Adderall 20 mg p.o. b.i.d. 2. Hyzaar 50/12.5 one tab p.o. daily. 3. Multivitamin 1 tablet p.o. daily. 4. Aspirin 81 mg p.o. daily. 5. Depo-Testosterone 25 mg IM every . 6. Lipitor 20 mg at bedtime. Follow up with Dr. Valdes on 01/16/2019; Dr. Karey Morse in one week; Dr. Brar on 01/22/2019; Dr. Samantha Rodríguez in one week. ADDITIONAL NOTE: The patient will follow up with Dr. Karey Morse because of her hepatic steatosis and with Dr. Samantha Rodríguez because she is concerned about vascular disease. Discussion and discharge planning more than 35 minutes. MMODL / IJN: [id number] /
== END 2019-01-15 18:52 | disposition home or self-care (01) ==
LOC: EC 15:04 → 3SCARD 17:05 → 4SSUR 01-13 22:08
PROVIDERS: ADMIT Hospitalist; ATTEND Hospitalist
DX: R07.2 Precordial pain (principal); R53.83 Other fatigue; R06.00 Dyspnea, unspecified; R61 Generalized hyperhidrosis; F41.9 Anxiety disorder, unspecified; K21.9 Gastro-esophageal reflux disease without esophagitis; I10 Essential (primary) hypertension; E78.5 Hyperlipidemia, unspecified; M54.5 Low back pain; F90.9 Attention-deficit hyperactivity disorder, unspecified type; F17.210 Nicotine dependence, cigarettes, uncomplicated; M19.90 Unspecified osteoarthritis, unspecified site; K76.0 Fatty (change of) liver, not elsewhere classified; D18.03 Hemangioma of intra-abdominal structures; Z79.899 Other long term (current) drug therapy; Z79.82 Long term (current) use of aspirin; Z79.52 Long term (current) use of systemic steroids; Z82.49 Family history of ischemic heart disease and other diseases of the circulatory system; Z85.41 Personal history of malignant neoplasm of cervix uteri; Z79.890 Hormone replacement therapy
CPT/HCPCS: 99285; 36415; 94760; 93005; 93306; 93351; 85379; 83880; 80061; 80053; 80048; 84443; 83735; 84484 ×2; 85025 ×2; 85610; 85730; 71046; 76705; 93970; 71275; G0378 ×5; Q9967

== ENCOUNTER → 2019-03-27 | Outpatient (CLI) | payer BC ==
--- NOTE | 2019-03-28 08:06 | CT ---
EXAMINATION TYPE: CT chest wo con DATE OF EXAM: 03/27/2019 COMPARISON: 01/13/2019 CTA chest HISTORY: f/u lung nodules CT DLP: 212.6 mGycm, Automated exposure control for dose reduction was used. CONTRAST: Performed injected with mL of . TECHNIQUE: Axial images were obtained at 5 mm thick sections. Reconstructed images are reviewed on [employer] computer in the coronal plane. FINDINGS: Portion of the thyroid visualized is normal. There is a 0.3 cm nodule within the periphery of the right lower lobe. Series 4 image 39. There is a 0.4 cm nodule within the periphery of the left lower lobe. Series 4 image 46. No enlarged mediastinal or hilar adenopathy is evident. The ascending aorta diameter at the level o f the main pulmonary artery is 3.7 cm. The main pulmonary artery diameter at the bifurcation is 2.[address] sections are obtained through the upper abdomen. Abdomen is essentially unremarkable. IMPRESSIONS: 1. 2 small stable nodules within the lungs discussed above. Monitoring for stability is recommended. Recommendations: 1. Follow-up CT chest in 6 months. These should be confirmed as stable over the course of 2 years.
== END ==
LOC: RADCTMAIN 16:16
PROVIDERS: ATTEND Family Medicine
DX: R91.8 Other nonspecific abnormal finding of lung field (principal)
CPT/HCPCS: 71250

== ENCOUNTER → 2019-08-07 | Outpatient (CLI) | payer BC ==
--- NOTE | 2019-08-07 16:18 | CT ---
EXAMINATION TYPE: CT chest wo con DATE OF EXAM: 08/07/2019 COMPARISON: 03/27/2019 HISTORY: Follow up for solitary lung nodule. CT DLP: 239.[address] of the chest was performed with lung and mediastinal window settings submitted. The la ck of contrast limits evaluation of the vascular, mediastinal and parenchymal structures including th e upper abdomen. LUNGS: The lungs are clear and free of infiltrate. No atelectasis. Stable 3 and 4 mm pulmonary nodule s right upper lobe and left lower lobe. No pleural effusion. No CT evidence of interstitial lung dis ease. MEDIASTINUM/LAUREL: Thoracic aorta is of normal caliber with limited evaluation given lack of contrast . The heart is not enlarged. No evidence for mediastinal mass. No lymph nodes greater than 1cm. UPPER ABDOMEN: No significant abnormality is seen. OTHER: No significant other abnormality. IMPRESSION: 1. Able pulmonary nodularity. Follow-up in one year is advised there is stability over a two-year ti meframe should be documented radiographically.
== END | disposition home or self-care (01) ==
LOC: RADCTMAIN 15:55
PROVIDERS: ATTEND Family Medicine
DX: R91.8 Other nonspecific abnormal finding of lung field (principal)
CPT/HCPCS: 71250

== ENCOUNTER → 2020-05-02 | Outpatient (CLI) | payer BC ==
--- NOTE | 2020-05-02 14:24 | CT ---
EXAMINATION TYPE: CT chest wo con DATE OF EXAM: 05/02/2020 COMPARISON: 08/07/2019, CT chest 03/27/2019, CT chest 07/19/2011, ultrasound abdomen 01/14/2019 HISTORY: Follow up nodule. CT DLP: 520 mGycm. Automated Exposure Control for Dose Reduction was Utilized. TECHNIQUE: CT scan of the thorax is performed without IV contrast. FINDINGS: LUNGS: The lungs are grossly clear, there is no concerning parenchymal mass or nodule identified. T here is no pleural effusion or pneumothorax seen. The tracheobronchial tree is patent. There are sta ble nodules within the right lower and left lower lobe measuring 3 and 4 mm unchanged from prior exam . Stable biapical pleural thickening. Additional 2 mm calcification anterior segment right upper lobe axial image 49 2011 exam. 1 to 2 mm subpleural nodularity stable. MEDIASTINUM: Lack of IV contrast is noted to limit evaluation for mediastinal and especially hilar ad enopathy. There are no definitive greater than 1 cm hilar or mediastinal lymph nodes. No cardiomega ly or pericardial effusion is seen. Ascending aorta measures 3.5 cm and stable from prior exam. OTHER: Hypertrophic and degenerative change of the spine. Stable low-density lesion within the liver left lobe retrospectively also noted on the CT scan of 2011. Low-attenuation throughout the liver mos t likely in the basis of fatty infiltration.. Suggestion of a tiny gallstone. There is an area of nodularity measuring approximately 1 cm within the right breast which could repre sent nodular breast tissue, however, mammogram recommended for further evaluation. IMPRESSION: 1. Stable pulmonary nodules unchanged from the prior exam. Findings are retrospectively stable dating back to 2011 CT chest. Findings are felt to be a benign. 2. There is a left hepatic lesion does not meet the criteria for simple cysts measuring 2 cm. This re trospectively stable from prior exam. Additionally ultrasound of 2019 demonstrated area of nodularity in similar location. Given the finding is stable in size likely benign. Short-term follow-up ultraso und could be obtained to confirm stability from the 2019 exam. 3. Suspected tiny gallstone. 4. There is a area of nodularity in the right breast for which mammogram is recommended.
== END | disposition home or self-care (01) ==
LOC: RADCTMAIN 13:47
PROVIDERS: ATTEND Family Medicine
DX: R91.1 Solitary pulmonary nodule (principal)
CPT/HCPCS: 71250

== ENCOUNTER → 2020-05-22 | Outpatient (CLI) | payer BC ==
--- NOTE | 2020-05-22 09:26 | US ---
EXAMINATION TYPE: US liver DATE OF EXAM: 05/22/2020 COMPARISON: NONE CLINICAL HISTORY: K76.9 Liver lesion. Liver disease. EXAM MEASUREMENTS: Liver Length: 16.6 cm Gallbladder Wall: .2 cm CBD: .7 cm Right Kidney: 9.3 x 4.0 x 4.8 cm Pancreas: wnl Liver: Liver lesion 2.5 x 1.4 x 2.5 cm as seen in previous, hypoechoic focus within the left lobe of the liver measures approximately 2.5 x 1.4 x 2.5 cm with peripheral hypoechoic rim seen on transvers e images. Liver echotexture is coarse suggesting hepatic steatosis. Gallbladder: No stones seen Evidence for sonographic Trujillo's sign: No CBD: Dilated Right Kidney: wnl IMPRESSION: Liver lesion is a chronic finding and suggestive of hemangioma on prior imaging. Dilated common bile duct, cause not identified. Consider hepatic steatosis.
== END | disposition home or self-care (01) ==
LOC: RADUSWWP 07:52
PROVIDERS: ATTEND Family Medicine
DX: K76.9 Liver disease, unspecified (principal)
CPT/HCPCS: 76705

== ENCOUNTER → 2020-05-28 | Outpatient (CLI) | payer BC ==
--- NOTE | 2020-05-28 14:09 | BD ---
EXAMINATION TYPE: Axial Bone Density DATE OF EXAM: 05/28/2020 COMPARISON: 03.11.2015 DEXA bone scan. CLINICAL HISTORY: 60 YR OLD FEMALE....ICD-10 CODE: N95.1 POST MENOPAUSAL, M89.9 DISORDER OF BONE Height: 64.5 Weight: 168 FRAX RISK QUESTIONS: Glucocorticoids (More than 3mos): YES (Ex: prednisone, prednisolone, methylprednisolone, dexamethasone, and hydrocortisone). Secondary Osteoporosis: YES 3. Menopause before 45: YES 5. Chronic liver disease: LIVER MASS, FATTY LIVER Current Tobacco Use: STOPPED 1 YR AGO RISK FACTORS HISTORY OF: Surgery to LT HIP, BONE TUMOR REMOVAL YOUNG ADULT Active: YES Diet low in dairy products/other sources of calcium: YES Postmenopausal woman: HYST AT AGE 43, TOTAL Take estrogen and/or progesterone medications: YES, FOR ABOUT 17 YRS, NOW ON TESTOSTERONE , Hyperparathyroidism: NO Adrenal Insufficiency: NO MEDICATIONS: Prednisone or other steroids: INHALERS WHEN NEEDED Additional Medications: BP MEDS, XANAX PRN, REFLUX MEDS, STATIN FOR CHOLESTEROL, VIT D AND CALCIUM Additional History: HYPERTENSION, REFLUX, CHOLESTEROL, OSTEOARTHRITIS EXAM MEASUREMENTS: Bone mineral densitometry was performed using the [employer] System. Bone mineral density as measured about the Lumbar spine is: ----- L1-L4(G/cm2): 1.285 T Score Values are as follows: ----- L1: 0.3 ----- L2: -0.4 ----- L3: 1.0 ----- L4: 2.2 ----- L1-L4: 0.9 Bone mineral density has: Increased 3.7% since study of: 03.11.2015 Bone mineral density about the R hip (g/cm2): 0.926 T Score values are as follows: -----R Neck: -0.9 -----R Total: -0.7 Bone mineral density has: Decreased -0.5% since study of: 03.11.2015 FRAX%s: THERE IS A 10.2% CHANCE FOR A MAJOR OSTEOPOROTIC FX AND A 0.5% FOR HIP.....PROBABILITY FOR FX IN 10 YRS TIME IMPRESSION: Normal range on today's study (Values between +1 and -1 indicate normal bone mass). Consider repeati ng this study in 5 years or sooner if there is some new clinical indication. NOTE: T-SCORE=SD OF THE YOUNG ADULT MEAN.
--- NOTE | 2020-05-29 08:30 | MM ---
Reason for exam: screening (asymptomatic). Last mammogram was performed 1 year and 7 months ago. History: Patient has history of other cancer at age 40. Took estrogen for 11 years 5 months beginning at age 43. Took other hormone for 1 year. Physical Findings: A clinical breast exam by your physician is recommended on an annual basis and results should be correlated with mammographic findings. MG 3D Screening Mammo W/Cad Bilateral CC and MLO view(s) were taken. XCCL view(s) were taken of the left breast. Prior study comparison: November 02, 2018, bilateral MG 3d screening mammo w/cad. August 12, 2016, bilateral MG screening mammo w CAD. Benign calcifications. There is chronic nodularity in the right breast. No significant changes when compared with prior studies. ASSESSMENT: Benign, BI-RAD 2 RECOMMENDATION: Routine screening mammogram of both breasts in 1 year.
== END | disposition home or self-care (01) ==
LOC: RADMAMWWP 12:53
PROVIDERS: ATTEND Obstetrics & Gynecology
DX: Z12.31 Encounter for screening mammogram for malignant neoplasm of breast (principal); M89.9 Disorder of bone, unspecified; N95.1 Menopausal and female climacteric states
CPT/HCPCS: 77063; 77067; 77080

== ENCOUNTER → 2020-12-05 | Outpatient (CLI) | payer BC ==
[2020-12-06 00:43] LABS: HIV 2 AB Non-Reactive (Non-Reactive); HIV AB P24 Non-Reactive (Non-Reactive); HIV P24 AG Non-Reactive (Non-Reactive)
== END | disposition home or self-care (01) ==
LOC: LABWHC1 14:20
PROVIDERS: ATTEND Obstetrics & Gynecology
DX: Z11.3 Encounter for screening for infections with a predominantly sexual mode of transmission (principal)
CPT/HCPCS: 36415; 86780; 87390

== ENCOUNTER 2021-05-09 17:21 | Emergency (ER) | payer BC ==
--- NOTE | 2021-05-09 18:24 | ED ---
General Adult HPI - General Chief complaint: Back Pain/Injury Stated complaint: back pain Source: patient, RN notes reviewed, old records reviewed Mode of arrival: ambulatory Limitations: no limitations - History of Present Illness Initial comments: Tearful and very anxious 60-year-old female, alert and oriented 4, presents to the emergency room with complaints of right mid back pain that radiates towards her spine. Patient was seen at urgent care last night for the same and states was prescribed Keflex for possible urinary tract infection. Patient denies any dysuria or fevers. No nausea, vomiting, or diarrhea. She denies any rectal bleeding or hematuria . She states that she has been seen Dr. Valdes over the past couple of years and was told she has a liver lesion back in 2018 and they have been monitoring a low platelet count. Patient states that she received 2 units of platelets in January 2021 but is very concerned as to the cause of why she is having low platelets. She was told by [facility] in [place] after a CT in March of this year, that she needs an MRI of her liver but no one has ordered it. Dr. Valdes has told her to follow up with a wagon drill operator which she states that she was referred to a doctor at [facility] but they had no records of her. She states that she seen Dr. Yip is referred by Dr. Valdes and was told that they would watch her for the next 3 months which she does not want to wait. Patient is very upset that no one is ordering the MRI and this has been ongoing for 2 years. Patient has multiple medical records on her phone stating that he is denying the liver recommending follow-up with MRI for liver hemangioma which is causing her great concern. She feels that there is something wrong and no one is doing anything. Patient states she does have an appointment with Dr. Valdes next week but she wants answers today. Patient does have a history of cervical cancer, hypertension, arthritis, anxiety, fatty liver, a surgical history of an appendectomy, hysterectomy. -: year(s) (2) Location: back (Right flank pain) Radiation: back (Radiates toward spotting) Severity scale (1-10): 10 Quality: aching, sharp Consistency: constant Improves with: none Worsens with: movement Associated Symptoms: malaise, other (anxiety) - Related Data Home Medications Medication Instructions Recorded Confirmed Dextroamphetamine/Amphetamine 20 mg PO BID 05/09/14 01/12/19 [Adderall] Losartan-Hctz 50-12.5 mg [Hyzaar 1 tab PO DAILY 08/09/17 01/12/19 50-12.5] Multivitamins, Thera [Multivitamin 1 tab PO DAILY 08/09/17 01/12/19 (formulary)] Aspirin [[place] Aspirin EC] 81 mg PO DAILY 01/12/19 01/12/19 Testosterone Cypionate 25 mg IM TH 01/12/19 01/12/19 [Depo-Testosterone] Turmeric Root Extract [Turmeric] 500 mg PO DAILY 01/12/19 01/12/19 Previous Rx's Medication Instructions Recorded Atorvastatin Calcium [Lipitor] 20 mg PO HS #30 tab 01/15/19 Allergies Allergy/AdvReac Type Severity Reaction Status Date / Time No Known Allergies Allergy Verified 05/09/21 17:28 Review of Systems ROS Statement: Those systems with pertinent positive or pertinent negative responses have been documented in the HPI. ROS Other: All systems not noted in ROS Statement are negative. Past Medical History Past Medical History: Cancer, GERD/Reflux, Hypertension Additional Past Medical History / Comment(s): HX OF CERVICAL CANCER, ARTHRITIS AND LOW BACK PAIN, liver lesion, kidney cysts History of Any Multi-Drug Resistant Organisms: None Reported Past Surgical History: Appendectomy, Section, Hysterectomy Additional Past Surgical History / Comment(s): "BONE TUMOR " REMOVED LEFT HIP Past Anesthesia/Blood Transfusion Reactions: No Reported Reaction, Motion Sickness Past Psychological History: ADD/ADHD, Anxiety Smoking Status: Former smoker Past Alcohol Use History: Occasional Past Drug Use History: None Reported - Past Family History Sister(s) History Unknown: Yes Family Medical History: No Reported History Additional Family Medical History / Comment(s): Paternal grandfather at 54 of a heart attack and mother has a heart murmur General Exam Limitations: no limitations General appearance: alert, in no apparent distress, anxious Head exam: Present: atraumatic, normocephalic, normal inspection Eye exam: Present: normal appearance, PERRL, EOMI. Absent: scleral icterus, conjunctival injection, periorbital swelling Pupils: Present: normal accommodation ENT exam: Present: normal exam, normal oropharynx, mucous membranes moist Neck exam: Present: normal inspection, full ROM. Absent: tenderness, meningismus, lymphadenopathy, thyromegaly Respiratory exam: Present: normal lung sounds bilaterally. Absent: respiratory distress, wheezes, rales, rhonchi, stridor, chest wall tenderness, accessory muscle use, decreased breath sounds, prolonged expiratory Cardiovascular Exam: Present: regular rate, normal heart sounds. Absent: JVD GI/Abdominal exam: Present: soft, normal bowel sounds. Absent: distended, tenderness, guarding, rebound, rigid, mass, pulsatile mass, hernia Extremities exam: Present: normal inspection, full ROM, normal capillary refill. Absent: tenderness, pedal edema, joint swelling, calf tenderness Back exam: Present: normal inspection, full ROM, CVA tenderness (R). Absent: C VA tenderness (L), muscle spasm, paraspinal tenderness, vertebral tenderness, rash noted Neurological exam: Present: alert, oriented X3, CN II-XII intact Psychiatric exam: Present: anxious Skin exam: Present: warm, dry, intact, normal color. Absent: rash, cyanosis, diaphoretic, erythema, petechiae, pallor, mottled Course Vital Signs 05/09/21 05/09/21 17:25 19:07 Temperature 98.5 F Pulse Rate 80 88 Respiratory 18 20 Rate Blood Pressure 159/88 148/91 O2 Sat by Pulse 97 98 Oximetry EKG Findings - EKG Results: EKG: sinus rhythm (Ventricular rhythm at 76, UT of 0.136, QRS of 0.94, QTC of 0.450) Medical Decision Making - Medical Decision Making CT abdomen and pelvis shows mild fatty infiltration of the liver but no abnormality of the abdomen and pelvis. There is no evidence of a renal stone or obstruction. The lung bases are clear there is no pleural effusion heart size is normal. There is no pericardial effusion. Gallbladder appears normal there is no evidence of a pancreatic mass. There is no hydronephrosis and ureters are nondilated. There are multiple phleboliths in the pelvis on the right side which may be cause of patient's pain. There is no mesenteric edema there are clips from an appendectomy noted. Hemoglobin and hematocrit is 13 and 39 respectively, platelet count is 82, troponin is negative at 0.012, urine is clear. Patient denies any bleeding. She states that she just has pain in her back and is not sure what causes. She had a CAT scan done at [facility] and march which stated that she had a hemangioma in her liver at that time and other lesions. She really wants an MRI and she had been referred to hematology /oncology Dr. Yip who stated that the wound to observe her for 3 months and she did not want to wait. Patient states she has an appointment with Dr. Valdes on May 13 and just needs something for her pain until she can see him. She will be given Tylenol #3's at discharge. - Lab Data Result diagrams: 05/09/21 18:37 05/09/21 18:37 Lab Results 05/09/21 05/09/21 05/09/21 Range/Units 18:37 18:37 18:37 WBC 6.5 (3.8-10.6) k/uL RBC 4.60 (3.80-5.40) m/uL Hgb 13.3 (11.4-16.0) gm/dL Hct 39.3 (34.0-46.0) % MCV 85.6 (80.0-100.0) fL MCH 28.9 (25.0-35.0) pg MCHC 33.7 (31.0-37.0) g/dL RDW 13.2 (11.5-15.5) % Plt Count 82 L (150-450) k/uL MPV 9.5 Neutrophils % 52 % Lymphocytes % 39 % Monocytes % 6 % Eosinophils % 1 % Basophils % 1 % Neutrophils # 3.3 (1.3-7.7) k/uL Lymphocytes # 2.5 (1.0-4.8) k/uL Monocytes # 0.4 (0-1.0) k/uL Eosinophils # 0.1 (0-0.7) k/uL Basophils # 0.1 (0-0.2) k/uL Manual Slide Review Performed PT 9.6 (9.0-12.0) sec INR 0.9 (<1.2) APTT 21.8 L (22.0-30.0) sec Sodium (137-145) mmol/L Potassium (3.5-5.1) mmol/L Chloride (98-107) mmol/L Carbon Dioxide (22-30) mmol/L Anion Gap mmol/L BUN (7-17) mg/dL Creatinine (0.52-1.04) mg/dL Est GFR (CKD-EPI)AfAm (>60 ml/min/1.73 sqM) Est GFR (CKD-EPI)NonAf (>60 ml/min/1.73 sqM) Glucose (74-99) mg/dL Calcium (8.4-10.2) mg/dL Magnesium (1.6-2.3) mg/dL Total Bilirubin (0.2-1.3) mg/dL AST (14-36) U/L ALT (4-34) U/L Alkaline Phosphatase (38-126) U/L Troponin I (0.000-0.034) ng/mL Total Protein (6.3-8.2) g/dL Albumin (3.5-5.0) g/dL Amylase (30-110) U/L Lipase (23-300) U/L Urine Color Light Yellow Urine Appearance Clear (Clear) Urine pH 6.0 (5.0-8.0) Ur Specific [place] 1.013 (1.001-1.035) Urine Protein Negative (Negative) Urine Glucose (UA) Negative (Negative) Urine Ketones Negative (Negative) Urine Blood Negative (Negative) Urine Nitrite Negative (Negative) Urine Bilirubin Negative (Negative) Urine Urobilinogen <2.0 (<2.0) mg/dL Ur Leukocyte Esterase Negative (Negative) 05/09/21 05/09/21 Range/Units 18:37 18:37 WBC (3.8-10.6) k/uL RBC (3.80-5.40) m/uL Hgb (11.4-16.0) gm/dL Hct (34.0-46.0) % MCV (80.0-100.0) fL MCH (25.0-35.0) pg MCHC (31.0-37.0) g/dL RDW (11.5-15.5) % Plt Count (150-450) k/uL MPV Neutrophils % % Lymphocytes % % Monocytes % % Eosinophils % % Basophils % % Neutrophils # (1.3-7.7) k/uL Lymphocytes # (1.0-4.8) k/uL Monocytes # (0-1.0) k/uL Eosinophils # (0-0.7) k/uL Basophils # (0-0.2) k/uL Manual Slide Review PT (9.0-12.0) sec INR (<1.2) APTT (22.0-30.0) sec Sodium 140 (137-145) mmol/L Potassium 3.8 (3.5-5.1) mmol/L Chloride 104 (98-107) mmol/L Carbon Dioxide 26 (22-30) mmol/L Anion Gap 10 mmol/L BUN 18 H (7-17) mg/dL Creatinine 0.87 (0.52-1.04) mg/dL Est GFR (CKD-EPI)AfAm 85 (>60 ml/min/1.73 sqM) Est GFR (CKD-EPI)NonAf 74 (>60 ml/min/1.73 sqM) Glucose 88 (74-99) mg/dL Calcium 9.7 (8.4-10.2) mg/dL Magnesium 2.0 (1.6-2.3) mg/dL Total Bilirubin 0.2 (0.2-1.3) mg/dL AST 33 (14-36) U/L ALT 22 (4-34) U/L Alkaline Phosphatase 96 (38-126) U/L Troponin I <0.012 (0.000-0.034) ng/mL Total Protein 7.2 (6.3-8.2) g/dL Albumin 4.7 (3.5-5.0) g/dL Amylase 62 (30-110) U/L Lipase 176 (23-300) U/L Urine Color Urine Appearance (Clear) Urine pH (5.0-8.0) Ur Specific [place] (1.001-1.035) Urine Protein (Negative) Urine Glucose (UA) (Negative) Urine Ketones (Negative) Urine Blood (Negative) Urine Nitrite (Negative) Urine Bilirubin (Negative) Urine Urobilinogen (<2.0) mg/dL Ur Leukocyte Esterase (Negative) Disposition Clinical Impression: Back pain, Anxiety about health Disposition: HOME SELF-CARE Condition: Fair Instructions (If sedation given, give patient instructions): Back Pain (ED), Anxiety (ED) Additional Instructions: Keep your appointment with Dr. Valdes on May 13. Continue following up with hematology oncology as directed by Dr. Valdes. Return to emergency room if any bleeding, increased pain, or fevers. Is patient prescribed a controlled substance at d/c from ED?: No Referrals: Randy Valdes MD [Primary Care Provider] - 1-2 days Time of Disposition: 21:15
[2021-05-09] MEDS: SODIUM CHLORIDE 0.9% 1,000 ML IV STA (19:02)
[2021-05-09] MEDS: MORPHINE SULFATE 4 MG/ML SYRINGE IV STA (19:02)
[2021-05-09 19:15] LABS: Appearance,Urine Clear (Clear); Bilirubin,Urine Negative (Negative); Blood,Urine Negative (Negative); Color,Urine Light Yellow; Glucose,Urine (UA) Negative (Negative); Ketones,Urine Negative (Negative); Leukocyte Esterase,Urine Negative (Negative); Nitrite,Urine Negative (Negative); Protein,Urine Negative (Negative); Specific Gravity,Urine 1.013 (1.001-1.035); Urobilinogen,Urine <2.0 mg/dL (<2.0)
[2021-05-09 19:25] LABS: Albumin 4.7 g/dL (3.5-5.0); Basophils # (A) 0.1 k/uL (0-0.2); Basophils % (A) 1 %; Calcium 9.7 mg/dL (8.4-10.2); Eosinophils # (A) 0.1 k/uL (0-0.7); Eosinophils % (A) 1 %; HCT 39.3 % (34.0-46.0); HGB 13.3 gm/dL (11.4-16.0); Lymphocytes # (A) 2.5 k/uL (1.0-4.8); Lymphocytes % (A) 39 %; MCH 28.9 pg (25.0-35.0); MCHC 33.7 g/dL (31.0-37.0); MCV 85.6 fL (80.0-100.0); Mean Platelet Volume 9.5; Monocytes # (A) 0.4 k/uL (0-1.0); Monocytes % (A) 6 %; Neutrophils # (A) 3.3 k/uL (1.3-7.7); Neutrophils % (A) 52 %; Potassium 3.8 mmol/L (3.5-5.1); RDW 13.2 % (11.5-15.5); Total Bilirubin 0.2 mg/dL (0.2-1.3); Total Protein 7.2 g/dL (6.3-8.2); WBC 6.5 k/uL (3.8-10.6)
[2021-05-09 19:26] LABS: Platelet Count 82 k/uL (150-450)
[2021-05-09 19:29] LABS: INR 0.9 (<1.2); Prothrombin Time 9.6 sec (9.0-12.0)
[2021-05-09 19:36] LABS: Partial Thromboplastin Time 21.8 sec (22.0-30.0)
[2021-05-09] MEDS: ALPRAZolam 0.25 MG TAB PO STA (19:42)
--- NOTE | 2021-05-09 20:51 | CT ---
EXAMINATION TYPE: CT abdomen pelvis w con DATE OF EXAM: 05/09/2021 COMPARISON: 08/09/2017 HISTORY: Generalized pain with nausea CT DLP: 945.3 mGycm Automated exposure control for dose reduction was used. CONTRAST: Performed with IV Contrast, patient injected with 100 mL of Isovue 300. Lung bases are clear. There is no pleural effusion. Heart size is normal. There is no pericardial eff usion. There is some fatty infiltration of the liver spleen is intact. Stomach is intact. Gallbladder appears normal. There is no evidence of pancreatic mass. There is no adrenal mass. Kidneys have normal size. There is no hydronephrosis. Ureters are not dilat ed. Bladder distends smoothly. There are multiple phleboliths in the pelvis on the right side. There is no inguinal hernia. There is hysterectomy. There is no free fluid in the pelvis. There is no mesenteric edema. There is no ascites or free air. There is no bowel obstruction. Delayed images show normal renal excretion there are clips from appendectomy. I see no definite ureteral gala culus. The lumbar vertebra have normal alignment. There is narrowing of L4-5 disc space. There is spur forma tion. There is no compression fracture. The bony pelvis is intact. The hip joints are intact. There i s no hip dysplasia. IMPRESSION: There is mild fatty infiltration of the liver. No acute abnormality of the abdomen pelvis. No evidenc e of renal stone or obstruction.
[2021-05-09] MEDS: ACET/COD 300 MG/30 MG STARTER PACK 6 TAB BTL PO STA (22:03)
[2021-05-09 22:17] VITALS: BP 146/78; PULSE 81; RESP 16; TEMP 98.2
== END 2021-05-09 22:16 | disposition home or self-care (01) ==
LOC: EC 17:21
DX: M54.9 Dorsalgia, unspecified (principal); F41.9 Anxiety disorder, unspecified; R10.9 Unspecified abdominal pain; R53.81 Other malaise; I10 Essential (primary) hypertension; K21.9 Gastro-esophageal reflux disease without esophagitis; F90.9 Attention-deficit hyperactivity disorder, unspecified type; Z87.891 Personal history of nicotine dependence
CPT/HCPCS: 36415; 93005; 80053; 82150; 83690; 83735; 84484; 85025; 85610; 85730; 81003; 74177; 99284; 96374; J2270; Q9967

== ENCOUNTER → 2021-09-30 | Outpatient (CLI) | payer BC ==
--- NOTE | 2021-09-30 11:55 | FL ---
EXAMINATION TYPE: FL barium swallow DATE OF EXAM: 09/30/2021 CLINICAL INDICATION: 61-year-old female R13.14, dysphagia, pharyngoesophageal phase. COMPARISON: Correlation CT 05/09/2021 and 08/09/2017 Total Fluoroscopy Time: 1 minute 35 seconds 40 images obtained. FINDINGS: The swallowing mechanism is normal and hypopharyngeal anatomy is preserved. A couple tiny clips are noted along the anterior soft tissues just anterior to the hyoid bone. 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 The cervical and thoracic portions have a normal course and caliber and normal motility. The mucosa is normal and no persistent filling defect is encountered. No hiatal hernia is present. No gastroesophageal reflux is identified. Review of the patient's recent 05/09/2021 CT shows a stable hypervascular lesion within segment 4 measu ring 2.2 cm. Given the peripheral enhancement on the 2017 CT, findings compatible with meningioma wit h surrounding vascular shunting. IMPRESSION: 1. A couple tiny clips noted in the soft tissues just anterior to the hyoid bone. The patient reports recent surgery for excision of an infected thyroglossal duct cyst. Correlate as to if these small cl ips need to be removed. 2. Otherwise, unremarkable esophagram.
== END | disposition home or self-care (01) ==
LOC: RADUSWWP 10:13
PROVIDERS: ATTEND Otolaryngology
DX: K14.8 Other diseases of tongue (principal)
CPT/HCPCS: 74220

== ENCOUNTER → 2021-10-13 | Outpatient (CLI) | payer BC ==
[2021-10-14 02:16] LABS: Basophils # (A) 0.05 X 10*3/uL (0.00-0.10); Basophils % (A) 0.7 %; Eosinophils # (A) 0.06 X 10*3/uL (0.04-0.35); Eosinophils % (A) 0.8 %; HCT 38.9 % (37.2-46.3); Lymphocytes # (A) 2.55 X 10*3/uL (0.90-5.00); Lymphocytes % (A) 33.6 %; MCH 27.5 pg (27.0-32.0); MCHC 30.8 g/dL (32.0-37.0); Mean Platelet Volume 12.8 fL (9.5-12.2); Monocytes # (A) 0.64 X 10*3/uL (0.20-1.00); Monocytes % (A) 8.4 %; Neutrophils # (A) 4.26 X 10*3/uL (1.80-7.70); Neutrophils % (A) 56.2 %; Platelet Count 70 X 10*3/uL (140-440); RBC 4.37 X 10*6/uL (4.10-5.20); WBC 7.58 X 10*3/uL (4.50-10.00)
== END | disposition home or self-care (01) ==
LOC: LABWHC1 15:26
PROVIDERS: ATTEND Internal Medicine Hematology & Oncology
DX: I10 Essential (primary) hypertension (principal); I48.0 Paroxysmal atrial fibrillation; F41.9 Anxiety disorder, unspecified; F90.0 Attention-deficit hyperactivity disorder, predominantly inattentive type; D69.3 Immune thrombocytopenic purpura; D18.00 Hemangioma unspecified site
CPT/HCPCS: 36415; 85025

== ENCOUNTER → 2021-10-13 | Outpatient (CLI) | payer BC ==
--- NOTE | 2021-10-15 11:45 | MM ---
Reason for exam: screening (asymptomatic). Last mammogram was performed 1 year and 5 months ago. History: Patient has history of other cancer at age 40. Took estrogen for 11 years 5 months beginning at age 43. Took other hormone for 1 year. Physical Findings: A clinical breast exam by your physician is recommended on an annual basis and results should be correlated with mammographic findings. MG 3D Screening Mammo W/Cad Bilateral CC and MLO view(s) were taken. Prior study comparison: May 28, 2020, bilateral MG 3d screening mammo w/cad. November 02, 2018, bilateral MG 3d screening mammo w/cad. There are scattered fibroglandular densities. There is chronic nodularity in the right breast. No significant changes when compared with prior studies. ASSESSMENT: Benign, BI-RAD 2 RECOMMENDATION: Routine screening mammogram of both breasts in 1 year.
== END | disposition home or self-care (01) ==
LOC: RADMAMWWP 15:21
PROVIDERS: ATTEND Obstetrics & Gynecology
DX: Z12.31 Encounter for screening mammogram for malignant neoplasm of breast (principal)
CPT/HCPCS: 77063; 77067

== ENCOUNTER → 2021-10-13 | Outpatient (CLI) | payer BC ==
--- NOTE | 2021-10-13 22:35 | US ---
EXAMINATION TYPE: US pelvic complete DATE OF EXAM: 10/13/2021 COMPARISON: CT A&P 05/09/2021, US transvaginal 2016 CLINICAL HISTORY: R10.2 Pelvic pain; R14.0 Abdominal bloating. Family hx of ovarian and uterine cance r. Hx of hysterectomy and right oophorectomy. TECHNIQUE: Transabdominal (TA). Transabdominal sonographic images of the pelvis were acquired. Tra nsvaginal sonographic images were medically necessary to better assess the following anatomy: EXAM MEASUREMENTS: Uterus: Surgically absent cm Endometrial Stripe: Surgically absent cm Right Ovary: Surgically absent cm Left Ovary: 2.0 x 2.0 x 1.3 cm 1. Uterus: Surgically absent 2. Endometrium: Surgically absent 3. Right Ovary: Surgically absent 4. Left Ovary: wnl Spectral, color and waveform doppler imaging shows good arterial and venous flow within the ovaries ; there is no evidence for ovarian torsion. 5. Bilateral Adnexa: wnl 6. Posterior cul-de-sac: wnl Urinary bladder is visualized is sonolucent IMPRESSION: 1. Normal left ovary
== END | disposition home or self-care (01) ==
LOC: RADUSWWP 15:19
PROVIDERS: ATTEND Obstetrics & Gynecology
DX: R10.2 Pelvic and perineal pain (principal); R14.0 Abdominal distension (gaseous); Z90.721 Acquired absence of ovaries, unilateral; Z90.710 Acquired absence of both cervix and uterus; Z80.41 Family history of malignant neoplasm of ovary; Z80.49 Family history of malignant neoplasm of other genital organs
CPT/HCPCS: 76856; 76857